=== PATIENT | female | born 1945 | race Caucasian/White ===

== ENCOUNTER → 2016-03-07 | Outpatient (CLI) | payer MEDICARE ==
--- NOTE | 2016-03-07 12:53 | MM ---
Reason for exam: clinical finding. History: Patient is postmenopausal. Indicated problem(s): lump or thickening in the right breast. Physical Findings: Nurse Summary: 2 x 4cm nodule in the right breast at 9 o'clock (nurse ts). MG 3D Diag Mammo W/Cad ANTON Bilateral CC and MLO view(s) were taken. Finding #1: There is a suspicious, high, spiculated, architectural distortion with calcifications in the upper outer quadrant, middle position of the right breast, 6cm from the nipple. Finding #2: There are intermediate concern, suspicious, fine, grouped/clustered calcifications in the upper outer quadrant, middle position of the right breast, 6 cm from the nipple. These results were verbally communicated with the patient and result sheet given to the patient on 03/07/16. ASSESSMENT: Highly suggestive of malignancy, BI-RAD 5 RECOMMENDATION: Ultrasound core biopsy of the right breast. Called Dr. Sheffield with mammographic findings and has scheduled an appointment for the patient for 03/10/16 at 11:[address] Cool. PRELIMINARY REPORT CALLED AND FAXED TO DR. COOL ON 03/07/16 AT 300/TP.
--- NOTE | 2016-03-07 13:01 | USB ---
Reason for exam: clinical finding. History: Patient is postmenopausal. Indicated problem(s): lump or thickening in the right breast. US Breast Limited RT Right breast ultrasound demonstrates a 3.5 x 2.0 x 2.1cm irregular, spiculated, solid, hypoechoic, vascular lesion with calcifications at BB at 9 o'clock. These results were verbally communicated with the patient and result sheet given to the patient on 03/07/16. ASSESSMENT: Highly suggestive of malignancy, BI-RAD 5 RECOMMENDATION: Ultrasound core biopsy of the right breast. Called Dr. Sheffield with mammographic findings and has scheduled an appointment for the patient for 03/10/16 at 11:[address] Cool. PRELIMINARY REPORT CALLED AND FAXED TO DR. COOL ON 03/07/16 AT 300/TP.
== END ==
LOC: RADMAMWWP 10:35
PROVIDERS: ATTEND Family Medicine
DX: N63 Unspecified lump in breast (principal); R92.8 Other abnormal and inconclusive findings on diagnostic imaging of breast
CPT/HCPCS: 76642; G0204; G0279

== ENCOUNTER → 2016-03-14 | Day surgery (SDC) | payer MEDICARE ==
[~2016-03-14] MED LIST: BACITRACIN OINT 1 EACH PACKET TOPICAL ONE; LIDOCAINE 1% INJ 10MG/ML (20 ML MDV) ONE; LIDOCAINE 1%-EPI 1:100,000 20 ML VIAL ONE; SODIUM BICARB 4% 5 ML VIAL (0.48 MEQ/ML) ONE
--- NOTE | 2016-03-14 14:34 | MM ---
EXAMINATION TYPE: MG diagnostic mammo RT wo CAD, MG surgical specimen RT, US biopsy breast VAD RT DATE OF EXAM: 03/14/2016 1:02 PM CLINICAL HISTORY: R92.8 ABNORMAL MAMMOGRAM. Palpable abnormality with prior abnormal mammogram and ultrasound. TECHNIQUE: Ultrasound guided core biopsy of right breast with clip placement and follow-up two-view mammogram as well as specimen mammogram. COMPARISON: Prior mammogram and ultrasound March 07, 2016 FINDINGS: The procedure of ultrasound guided core biopsy was explained to the patient. Benefits, alternatives, and risks were discussed. An informed consent was then obtained. The patient was placed in supine positioning for imaging and for the procedure. Preprocedure imaging redemonstrated irregular heterogeneous hypoechoic mass at 9:00 position in right breast with scattered calcifications identified. The overlying skin was prepped and draped in usual sterile fashion. Lidocaine buffered with bicarbonate was used as anesthetic into the skin. Lidocaine with epinephrine is used as anesthetic into the deeper tissue up to area of concern in the right breast. Under ultrasound guidance, a 13-gauge vacuum assisted biopsy gun device was used to obtain 7 core samples. Following this, a biopsy clip was left in lesion. The patient tolerated the procedure well without any immediate complication. The patient was kept in the radiology department for short stay after the procedure and then discharged home in stable condition. Postprocedure mammogram shows successful clip deployment at area of group of suspicious microcalcifications. Post procedure specimen mammogram shows suspicious calcifications within the specimen. IMPRESSION: Successful, uncomplicated ultrasound guided core biopsy of area of concern in the right breast, full pathology results to follow. High index of suspicion noted at time of procedure. Pathology Results: Malignant BREAST, RIGHT, ULTRASOUND GUIDED CORE BIOPSY: POORLY DIFFERENTIATED INVASIVE CARCINOMA, PENDING SPECIAL STAINS. 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 ADDENDUM REPORT BREAST, RIGHT, ULTRASOUND GUIDED CORE BIOPSY: INVASIVE DUCTAL CARCINOMA AND HIGH GRADE DUCT CARCINOMA IN SITU WITH NECROSIS AND CALCIFICATIONS. Recommendation Surgical consult of the right breast. IVON
== END ==
LOC: RADUSWWP 11:33
PROVIDERS: ATTEND Surgery
DX: C50.811 Malignant neoplasm of overlapping sites of right female breast (principal); N64.1 Fat necrosis of breast; R92.1 Mammographic calcification found on diagnostic imaging of breast; R92.8 Other abnormal and inconclusive findings on diagnostic imaging of breast
CPT/HCPCS: 88305; 88342; 88341; 19083; G0206; A4648; J2001

== ENCOUNTER → 2016-03-27 | Outpatient (CLI) | payer MEDICARE | END | disposition home or self-care (01) | LOC: LABWHC1 16:20 | PROVIDERS: ATTEND Internal Medicine Endocrinology, Diabetes & Metabolism | DX: E03.9 Hypothyroidism, unspecified (principal) | CPT/HCPCS: 36415; 84443 ==

== ENCOUNTER → 2016-03-29 | Outpatient (CLI) | payer MEDICARE ==
--- NOTE | 2016-03-30 10:12 | ECHOF ---
Referral Reason:Z01.818 Pre-Chemotherapy, Breast CA MEASUREMENTS -------- HEIGHT: 165.1 cm WEIGHT: 74.8 kg BP: 191/89 RVIDd: 2.5 cm (< 3.3) IVSd: 0.9 cm (0.6 - 1.1) LVIDd: 4.1 cm (3.9 - 5.3) LVPWd: 0.9 cm (0.6 - 1.1) IVSs: 1.3 cm LVIDs: 2.9 cm LVPWs: 1.4 cm LA Diam: 3.0 cm (2.7 - 3.8) LAESV Index (A-L): 19.37 ml/m Ao Diam: 2.4 cm (2.0 - 3.7) AV Cusp: 1.5 cm (1.5 - 2.6) LA Diam: 2.8 cm (2.7 - 3.8) MV EXCURSION: 13.015 mm (> 18.000) MV EF SLOPE: 82 mm/s (70 - 150) EPSS: 0.6 cm MV E Dillon: 0.75 m/s MV DecT: 288 ms MV A Dillon: 0.60 m/s MV E/A Ratio: 1.25 RAP: 5.00 mmHg RVSP: 36.40 mmHg FINDINGS -------- Sinus rhythm with extra systolic beats. there is turbulent flow just above the left sinus of valsalva. possible abnormal origin of coronary artery. further evaluation with ELINOR and CT angiogram is suggested. This was a technically adequate study. Left ventricular wall thickness is normal. Overall left ventricular systolic function is low-normal with, an EF between 50 - 55 %. The right ventricle is normal in size. Normal LA size by volume 22+/-6 ml/m2. The right atrium is normal in size. Aortic valve is trileaflet and is mildly thickened. Flow crossing from sinus of valsva. Mild mitral annular calcification present. There is trace mitral regurgitation. Mild tricuspid regurgitation present. There is mild pulmonary hypertension. The right ventricular systolic pressure, as measured by Doppler, is 36.40mmHg. Trace/mild (physiologic) pulmonic regurgitation. The aortic root size is normal. Normal inferior vena cava with normal inspiratory collapse consistent with estimated right atrial pressure of 5 mmHg. Echo free space may represent effusion or a pericardial fat pad. CONCLUSIONS -------- 1. Sinus rhythm with extra systolic beats. 2. Mild mitral annular calcification present. 3. There is trace mitral regurgitation. 4. Mild tricuspid regurgitation present. 5. There is mild pulmonary hypertension. 6. The right ventricular systolic pressure, as measured by Doppler, is 36.40mmHg. 7. Trace/mild (physiologic) pulmonic regurgitation. 8. The aortic root size is normal. 9. Echo free space may represent effusion or a pericardial fat pad. 10. there is turbulent flow just above the left sinus of valsalva. possible abnormal origin of coronary artery. further evaluation with ELINOR and CT angiogram is suggested. 11. This was a technically adequate study. 12. Left ventricular wall thickness is normal. 13. Overall left ventricular systolic function is low-normal with, an EF between 50 - 55 %. 14. The right ventricle is normal in size. 15. Normal LA size by volume 22+/-6 ml/m2. 16. Aortic valve is trileaflet and is mildly thickened. 17. Flow crossing from sinus of valsva. SPINNER OPEN END: Danisha Roy RDCS
== END | disposition home or self-care (01) ==
LOC: RADECHMAIN 11:06
PROVIDERS: ATTEND Internal Medicine Hematology & Oncology
DX: Z01.818 Encounter for other preprocedural examination (principal); I07.1 Rheumatic tricuspid insufficiency; I37.1 Nonrheumatic pulmonary valve insufficiency; I27.2 Other secondary pulmonary hypertension
CPT/HCPCS: 93306

== ENCOUNTER → 2016-04-01 | Outpatient (CLI) | payer MEDICARE ==
--- NOTE | 2016-04-02 12:35 | PE ---
EXAMINATION TYPE: PET CT fusion whole body DATE OF EXAM: 04/01/2016 5:01 PM CLINICAL HISTORY: 70 year-old female right breast cancer, initial staging. TECHNIQUE: Following the intravenous administration of 13.0 mCi of F-18 FDG, whole body images are performed from the skull base to the midthigh. Images are reviewed on the computer in the coronal, a xial, and sagittal planes. Reconstructed rotating images are created on independent workstation and reviewed on the computer. A localization and attenuation correction CT is performed in conjunction with the PET scan. Glucose level: 81 mg/dL COMPARISON: Correlation mammographic exams of 03/14/2016 FINDINGS: PET: Patient's known lateral right breast carcinoma shows intense hypermetabolism, maximum SUV 11.2. There is a sentinel lymph node in the low right axilla measuring 9 mm an showing mild FDG uptake, max imal SUV 2.1. This is more uptake than lymph nodes on the contralateral side and the injection was at the left antecubital fossa. There are scattered focal areas of mild to moderate FDG uptake, such as in the right supraclavicular region, paravertebral regions on both sides, greatest on the left at T10 anterior to the transverse p rocess. On CT, this area of increased FDG uptake (maximum SUV 4.0) corresponds to fat. Otherwise, physiologic FDG uptake within the chest, abdomen, and pelvis. ATTENUATION CORRECTION CT: Visualized paranasal sinuses and mastoid air cells appear clear. No cervical lymphadenopathy seen. Heart is mildly enlarged without pericardial effusion. Aorta is normal caliber with conventional bran donaldo anatomy. Mild ectasia lower descending thoracic aorta at 2.6 cm. There is mildly enlarged azul adam to the main right and left pulmonary arteries at 2.8 and 2.6 cm, respectively, suggesting pulmona ry arterial hypertension. No mediastinal lymphadenopathy. Mild diffuse bronchial wall thickening and mild emphysema. Some patchy dependent atelectasis at the lung bases. No pleural effusion. No dilated small bowel, free fluid, or free air. No mesenteric or retroperitoneal lymphadenopathy. Bladder is nondistended. Uterus and ovaries are visualized. No abnormal fluid collection in the pelvi s. Bones: Degenerative changes of both hips and within the mid to lower lumbar spine. No osseous destruc tive process. IMPRESSION: 1. Known lateral right breast carcinoma shows very intense hypermetabolism. No metabolic evidence for multicentric or contralateral disease. 2. Possible early metastasis to the right axillary sentinel lymph node which is not enlarged but show s asymmetrically increased mild FDG uptake. Otherwise, no evidence for metastatic disease. 3. Findings in a pattern suggestive of brown fat along the paravertebral regions, greatest on the lef t at T10. 4. Mild cardiomegaly, mild COPD, and suggestion of pulmonary arterial hypertension.
== END ==
LOC: RADPETMAIN 13:41
PROVIDERS: ATTEND Internal Medicine Hematology & Oncology
DX: C50.419 Malignant neoplasm of upper-outer quadrant of unspecified female breast (principal); J44.9 Chronic obstructive pulmonary disease, unspecified; I51.7 Cardiomegaly
CPT/HCPCS: 78816; A9552

== ENCOUNTER → 2016-04-10 | Outpatient (CLI) | payer MEDICARE ==
--- NOTE | 2016-04-10 11:47 | XR ---
EXAMINATION TYPE: XR chest 2V DATE OF EXAM: 04/10/2016 11:38 AM COMPARISON: None TECHNIQUE: PA and lateral views submitted. HISTORY: Preop breast cancer FINDINGS: The lungs are clear and there is no pneumothorax, pleural effusion, or focal pneumonia. Heart is pr ominent in size. Hypertrophic and degenerative change of the spine. IMPRESSION: 1. No acute process.
== END | disposition home or self-care (01) ==
LOC: RADXRMAIN 11:20
PROVIDERS: ATTEND Surgery
DX: Z01.818 Encounter for other preprocedural examination (principal)
CPT/HCPCS: 71020

== ENCOUNTER 2016-04-11 12:05 | Day surgery (SDC) | payer MEDICARE ==
[2016-04-10 14:36] VITALS: BMI 27.0
[~2016-04-11 12:05] MED LIST changes: -BACITRACIN OINT 1 EACH PACKET TOPICAL ONE; +CLINDAMYCIN 900 MG in DEXTROSE 5% IN WATER 50 ML IVPB ONE; +HYDROmorphone 1 MG/ML 1 ML SYRINGE IVP PRN; +LACTATED RINGERS 1,000 ML IV SCH; +LIDOCAINE 1% 20 ML VIAL (10MG/ML) FOR IV START INTRADERMA PRN; -LIDOCAINE 1% INJ 10MG/ML (20 ML MDV) ONE; -LIDOCAINE 1%-EPI 1:100,000 20 ML VIAL ONE; +MIDAZOLAM 2 MG/2 ML VIAL IV PRN; +ONDANSETRON 4 MG/2 ML VIAL IVP PRN; -SODIUM BICARB 4% 5 ML VIAL (0.48 MEQ/ML) ONE
[2016-04-11 12:28] VITALS: RESP 16; TEMP 97.5
[2016-04-11] MEDS ORDERED: MIDAZOLAM 2 MG/2 ML VIAL ONE (13:56)
[2016-04-11] MEDS ORDERED: PROPOFOL 10 MG/ML 20 ML VIAL IV ONE (13:56)
[2016-04-11] MEDS ORDERED: GLYCOPYRROLATE 0.2 MG/ML 2 ML VIAL ONE (13:56)
[2016-04-11] MEDS ORDERED: KETAMINE 10 MG/ML 20 ML VIAL ONE (13:56)
[2016-04-11] MEDS ORDERED: fentaNYL (PF) 50 MCG/ML 2 ML AMP ONE (13:56)
[2016-04-11] MEDS ORDERED: LIDOCAINE 1% INJ 10MG/ML (20 ML MDV) ONE (13:56)
[2016-04-11] MEDS ORDERED: LIDOCAINE 1% INJ 10MG/ML (20 ML MDV) SQ ONE ×2 (14:18)
[2016-04-11] MEDS ORDERED: HEPARIN SODIUM,PORCINE 100 UNIT/ML 5 ML VIAL IV ONE (14:18)
[2016-04-11] MEDS ORDERED: IOHEXOL 350 MG/ML 100 ML BOTTLE INJ ONE ×2 (14:19)
[2016-04-11] MEDS ORDERED: LACTATED RINGERS 1,000 ML IV ONE (14:49)
--- NOTE | 2016-04-11 15:08 | P.OP ---
Date of Procedure: 04/11/16 Preoperative Diagnosis: right breast cancer Postoperative Diagnosis: Right breast cancer Procedure(s) Performed: Mediport placement in left internal jugular vein Anesthesia: GETA Pathology: none sent Condition: stable Disposition: PACU Indications for Procedure: Neoadjuvant chemotherapy Operative Findings: Patent Internal jugular veins flouro time 71 sec Description of Procedure: The patient was brought to the operating room and placed in supine position with both arms tucked. A footboard was placed. Chlorhexidine was used to prep the neck followed by application of sterile drapes and an Ioban dressing . A timeout was performed to verify correct patient and correct procedure. Patient was confirmed to receive perioperative IV antibiotics and VTE prophylaxis. An ultrasound was performed of the left neck to identify the carotid artery and internal jugular vein. The internal jugular vein was compressible and patent . Photodocumentation was made. Local anesthetic was infiltrated to create a field block. Seldinger technique was used and the internal jugular vein was accessed under direct ultrasound guidance. There was good backflow of dark venous blood. The guidewire was inserted and fluoroscopic images obtained to confirm the tip in SVC. The needle was removed followed by insertion of a dilator peel-away sheath. Local anesthetic was infiltrated along the inferior aspect of the right clavicle. A 2.5 cm skin incision was made and dissection was carried up to the pectoralis major muscle. A pocket was created for the port. The peel-away was cracked and removed with the port in appropriate position as confirmed by fluoroscopy and dye. A Jam was used to tunnel from the expected port site all the way up to the small incision in the neck and the catheter was pulled down into the cavity and then, once cut to size and attached to the port. The connector was clipped shut into position after which fluoroscopy was done positioning. We did use radiopaque dye for this roughly 9 mL. Once that was done subcutaneous tissue in the right pocket area was closed with 2-0 Vicryl. This was done after placing stay sutures with 3-0 Prolene for the port. Skin was closed with 4-0 Monocryl for the port site as well as the initial access site. Dermabond was applied slight pressure dressing in the neck as well as Telfa with Tegaderm for the right pectoral region. Total fluoroscopic time was 71 seconds. Prior to leaving the operating room fluoroscopy showed the catheter tip in the appropriate site patient will get a chest x-ray in recovery.
[2016-04-11] MEDS ORDERED: ONDANSETRON 4 MG/2 ML VIAL IVP ONE (15:30)
--- NOTE | 2016-04-11 15:43 | XR ---
EXAMINATION TYPE: XR chest 1V confirm line plcmt DATE OF EXAM: 04/11/2016 3:39 PM COMPARISON: 04/10/2016 HISTORY: Line placement TECHNIQUE: Single frontal view of the chest is obtained. FINDINGS: There is no focal air space opacity, pleural effusion, or pneumothorax seen. The cardiac silhouette size is within normal limits. Mediport catheter seen with the tip overlying the SVC. Cardiomegaly stable. Underlying COPD suggested . Degenerative change of the spine and arthropathy of the shoulder. IMPRESSION: 1. Mediport seen with the tip overlying the SVC and no evidence of pneumothorax.
[2016-04-11 16:51] VITALS: BP 146/80; PULSE 62
--- NOTE | 2016-04-12 11:50 | FL ---
EXAMINATION TYPE: FL guided central line placemt HISTORY: Fluoroscopy time Impression: 1. Fluoroscopy support provided to the referring physician. Possibility of 1 minute 11 seconds provid ed.
== END 2016-04-11 17:05 | disposition home or self-care (01) ==
LOC: OR 12:05
PROVIDERS: ATTEND Surgery
DX: C50.911 Malignant neoplasm of unspecified site of right female breast (principal); E89.0 Postprocedural hypothyroidism; R11.2 Nausea with vomiting, unspecified; Z79.899 Other long term (current) drug therapy; Z88.1 Allergy status to other antibiotic agents; Z88.5 Allergy status to narcotic agent; Z88.0 Allergy status to penicillin; Z88.2 Allergy status to sulfonamides; Z88.8 Allergy status to other drugs, medicaments and biological substances
CPT/HCPCS: 77001; 36561; C1788 ×2; J2250; J1642; Q9967; J2405; J2001; J3010; J2704

== ENCOUNTER → 2016-05-29 | Outpatient (CLI) | payer MEDICARE ==
--- NOTE | 2016-05-29 13:25 | US ---
EXAMINATION TYPE: US venous doppler duplex LE BI DATE OF EXAM: 05/29/2016 1:01 PM COMPARISON: NONE CLINICAL HISTORY: R22.42, R22.41 swelling in left,right lower limbs. Bilateral leg swelling. Going t hrough chemo. 2nd stage breast ca. SIDE PERFORMED: Bilateral TECHNIQUE: The lower extremity deep venous system is examined utilizing real time linear array sonog brenda with graded compression, doppler sonography and color-flow sonography. VESSELS IMAGED: External Iliac Vein (EIV) Common Femoral Vein Deep Femoral Vein Greater Saphenous Vein * Femoral Vein Popliteal Vein Small Saphenous Vein * Proximal Calf Veins (* superficial vessels) Right Leg: Appears negative for DVT Left Leg: Appears negative for DVT IMPRESSION: 1. No diagnostic evidence of DVT as visualized.
--- NOTE | 2016-05-30 09:48 | ECHOF ---
Referral Reason:R22.42, R22.41 swelling in left,right lower limbs MEASUREMENTS -------- HEIGHT: 165.1 cm WEIGHT: 72.6 kg BP: 133/78 RVIDd: 2.8 cm (< 3.3) IVSd: 0.8 cm (0.6 - 1.1) LVIDd: 4.7 cm (3.9 - 5.3) LVPWd: 0.8 cm (0.6 - 1.1) IVSs: 1.4 cm LVIDs: 3.2 cm LVPWs: 1.1 cm LA Diam: 3.4 cm (2.7 - 3.8) LAESV Index (A-L): 29.97 ml/m Ao Diam: 2.8 cm (2.0 - 3.7) AV Cusp: 2.0 cm (1.5 - 2.6) MV EXCURSION: 14.382 mm (> 18.000) MV EF SLOPE: 91 mm/s (70 - 150) EPSS: 0.3 cm MV E Dillon: 1.20 m/s MV DecT: 196 ms MV A Dillon: 0.70 m/s MV E/A Ratio: 1.71 AV maxP.98 mmHg AV meanP.24 mmHg RAP: 10.00 mmHg RVSP: 35.53 mmHg FINDINGS -------- Sinus rhythm. This was a technically good study. The left ventricular size is normal. Left ventricular wall thickness is normal. Overall left ventricular systolic function is normal with, an EF between 55 - 60 %. The right ventricle is normal in size and function. LA is midly dilated 29-33ml/m2. The right atrium is normal in size. There is mild aortic valve sclerosis. Mild mitral annular calcification present. There is trace to mild mitral regurgitation. Trace tricuspid regurgitation present. There is mild pulmonary hypertension. The right ventricular systolic pressure, as measured by Doppler, is 35.53mmHg. Trace/mild (physiologic) pulmonic regurgitation. The aortic root size is normal. Normal inferior vena cava with less than 50% inspiratory collapse consistent with estimated right atrial pressure of 10 mmHg. The pericardium is normal. CONCLUSIONS -------- 1. Sinus rhythm. 2. Mild mitral annular calcification present. 3. There is trace to mild mitral regurgitation. 4. Trace tricuspid regurgitation present. 5. There is mild pulmonary hypertension. 6. The right ventricular systolic pressure, as measured by Doppler, is 35.53mmHg. 7. Trace/mild (physiologic) pulmonic regurgitation. 8. The aortic root size is normal. 9. Normal inferior vena cava with less than 50% inspiratory collapse consistent with estimated right atrial pressure of 10 mmHg. 10. The pericardium is normal. 11. This was a technically good study. 12. The left ventricular size is normal. 13. Left ventricular wall thickness is normal. 14. Overall left ventricular systolic function is normal with, an EF between 55 - 60 %. 15. The right ventricle is normal in size and function. 16. LA is midly dilated 29-33ml/m2. 17. The right atrium is normal in size. 18. There is mild aortic valve sclerosis. COMPANY MANAGER: Laura Gonzalez RDCS
== END | disposition home or self-care (01) ==
LOC: RADUSMAIN 12:06
PROVIDERS: ATTEND Internal Medicine Hematology & Oncology
DX: Z01.810 Encounter for preprocedural cardiovascular examination (principal); I08.0 Rheumatic disorders of both mitral and aortic valves; I27.2 Other secondary pulmonary hypertension; C50.411 Malignant neoplasm of upper-outer quadrant of right female breast; R63.5 Abnormal weight gain; R22.42 Localized swelling, mass and lump, left lower limb; R22.41 Localized swelling, mass and lump, right lower limb; Z01.818 Encounter for other preprocedural examination
CPT/HCPCS: 93306; 93970

== ENCOUNTER → 2016-09-01 | Outpatient (CLI) | payer MEDICARE ==
--- NOTE | 2016-09-01 15:09 | ECHOF ---
Referral Reason:Z01.818 chemo C50.411 breast ca MEASUREMENTS -------- HEIGHT: 162.6 cm WEIGHT: 65.8 kg BP: IVSd: 0.9 cm (0.6 - 1.1) LVIDd: 3.6 cm (3.9 - 5.3) LVPWd: 0.8 cm (0.6 - 1.1) IVSs: 1.1 cm LVIDs: 1.4 cm LVPWs: 1.4 cm Ao Diam: 3.4 cm (2.0 - 3.7) AV Cusp: 1.9 cm (1.5 - 2.6) LA Diam: 3.4 cm (2.7 - 3.8) MV EXCURSION: 15.965 mm (> 18.000) MV EF SLOPE: 165 mm/s (70 - 150) EPSS: 1.2 cm MV E Dillon: 0.96 m/s MV DecT: 193 ms MV A Dillon: 0.89 m/s MV E/A Ratio: 1.09 AV maxP.61 mmHg AV meanP.46 mmHg AR PHT: 425 ms RAP: 5.00 mmHg RVSP: 33.26 mmHg FINDINGS -------- Sinus rhythm. This was a technically good study. Left ventricular wall thickness is normal. Overall left ventricular systolic function is normal with, an EF between 55 - 60 %. The right ventricle is normal in size and function. The left atrium is normal in size. The right atrium is normal in size. Aortic valve is trileaflet and is mildly thickened. There is trace mitral regurgitation. Trace tricuspid regurgitation present. The right ventricular systolic pressure, as measured by Doppler, is 33.26mmHg. Pulmonic valve appears structurally normal. The aortic root, ascending aorta and aortic arch are normal. The pericardium is normal. CONCLUSIONS -------- 1. Sinus rhythm. 2. Trace tricuspid regurgitation present. 3. The right ventricular systolic pressure, as measured by Doppler, is 33.26mmHg. 4. Pulmonic valve appears structurally normal. 5. The aortic root, ascending aorta and aortic arch are normal. 6. The pericardium is normal. 7. This was a technically good study. 8. Left ventricular wall thickness is normal. 9. Overall left ventricular systolic function is normal with, an EF between 55 - 60 %. 10. The right ventricle is normal in size and function. 11. The left atrium is normal in size. 12. The right atrium is normal in size. 13. Aortic valve is trileaflet and is mildly thickened. 14. There is trace mitral regurgitation. COMPOUNDING AND FINISHING SUPERVISOR: Isela Pino RDCS
== END | disposition home or self-care (01) ==
LOC: RADECHMAIN 12:27
PROVIDERS: ATTEND Internal Medicine Hematology & Oncology
DX: Z01.810 Encounter for preprocedural cardiovascular examination (principal); C50.411 Malignant neoplasm of upper-outer quadrant of right female breast; I08.1 Rheumatic disorders of both mitral and tricuspid valves
CPT/HCPCS: 93306

== ENCOUNTER 2016-09-05 07:40 | Day surgery (SDC) | payer MEDICARE ==
[2016-08-30 11:43] VITALS: BMI 24.1
[~2016-09-05 07:40] MED LIST changes: +DEXAMETHASONE SOD PHOSPHATE 10 MG/ML 1 ML VIAL IV ONE; +HEPARIN SODIUM,PORCINE 5,000 UNIT/ML 1 ML VIAL SQ ONE; -LIDOCAINE 1% 20 ML VIAL (10MG/ML) FOR IV START INTRADERMA PRN; +ONDANSETRON 4 MG/2 ML VIAL IVP ONE; -ONDANSETRON 4 MG/2 ML VIAL IVP PRN; +SCOPOLAMINE 1.5MG/72HR PATCH TRANSDERM ONE
[2016-09-05] MEDS ORDERED: ALPRAZolam 0.25 MG TAB PO STA (08:03)
[2016-09-05] MEDS ORDERED: LIDOCAINE 1% 20 ML VIAL (10MG/ML) FOR IV START INTRADERMA ONE (08:18)
[2016-09-05] MEDS ORDERED: LIDOCAINE 1% INJ 10MG/ML (20 ML MDV) SQ ONE (10:01)
--- NOTE | 2016-09-05 10:38 | NM ---
EXAMINATION TYPE: NM sentinel node injection DATE OF EXAM: 09/05/2016 COMPARISON: NONE HISTORY: Breast cancer TECHNIQUE AND FINDINGS: The procedure of sentinel lymph node injection was explained to the patient. The benefits, alternatives, and risks were discussed. An informed consent was then obtained. Overlying skin is cleaned with sterile alcohol. Lidocaine buffered with bicarbonate was used as anes thetic into the skin and subcutaneous tissue surrounding the nipple. Following this, 549 uCi Tc 99m Filtered Sulfur Colloid was injected into 4 equivalent doses at 12, 3, 6, and 9:00 position surroundi ng the right nipple intradermally. The injection sites were massaged by nuclear medical technologist for 10 minutes after injection. T he patient tolerated the procedure well without any immediate complication. The patient was kept in the radiology department for short stay after the procedure and then taken to surgery for surgical pr ocedure. IMPRESSION: Right breast radiotracer injection for sentinel node localization as above.
[2016-09-05] MEDS ORDERED: HEPARIN SODIUM,PORCINE 5,000 UNIT/ML 1 ML VIAL SQ ONE ×2 (11:21→12:32)
[2016-09-05] MEDS ORDERED: GLYCOPYRROLATE 0.2 MG/ML 2 ML VIAL ONE (13:09)
[2016-09-05] MEDS ORDERED: NEOSTIGMINE 1 MG/ML 10 ML VIAL ONE (13:09)
[2016-09-05] MEDS ORDERED: ROCURONIUM BROMIDE 10 MG/ML 10 ML VIAL IV ONE (13:09)
[2016-09-05] MEDS ORDERED: LIDOCAINE 1% INJ 10MG/ML (20 ML MDV) ONE (13:09)
[2016-09-05] MEDS ORDERED: SUCCINYLCHOLINE CHLORIDE 100 MG/5 ML SYR IV ONE (13:09)
[2016-09-05] MEDS ORDERED: MIDAZOLAM 2 MG/2 ML VIAL ONE (13:09)
[2016-09-05] MEDS ORDERED: fentaNYL (PF) 50 MCG/ML 2 ML AMP ONE (13:09)
[2016-09-05] MEDS ORDERED: ONDANSETRON 4 MG/2 ML VIAL ONE (13:09)
[2016-09-05] MEDS ORDERED: PROPOFOL 10 MG/ML 20 ML VIAL IV ONE (13:09)
[2016-09-05] MEDS ORDERED: METHYLENE BLUE 10 MG/ML 1 ML VIAL INJ ONE (13:28)
[2016-09-05] MEDS ORDERED: LACTATED RINGERS 1,000 ML IV ONE (15:20)
[2016-09-05] MEDS ORDERED: NALOXONE 0.4 MG/ML 1 ML VIAL IV PRN (15:32)
[2016-09-05] MEDS ORDERED: HYDROcodone/APAP 5-325MG 1 EACH TAB PO PRN (15:32)
[2016-09-05] MEDS ORDERED: ONDANSETRON 4 MG/2 ML VIAL IVP PRN (15:32)
--- NOTE | 2016-09-05 15:32 | P.OP ---
Date of Procedure: 09/05/16 Preoperative Diagnosis: right breast cancer Postoperative Diagnosis: same Procedure(s) Performed: right sentinal node mapping, sentinal node biopsy, axillary disection, right breast lumpectomy Implants: biozorb Anesthesia: GETA Surgeon: Marlee Cool Estimated Blood Loss (ml): 30 IV fluids (ml): 600 Pathology: other (sentinal noeds, axillary contents, right breast lumectomy) Condition: stable Disposition: PACU Indications for Procedure: Right breast cancer Operative Findings: Right breast cancer, sentinel node positive for cancer Description of Procedure: Patient was taken to the operating room and following induction of general anesthesia the right breast and the axilla were prepped and draped in a sterile fashion. This was done after 6 mL of half-strength methylene blue were injected in the periareolar area of the breast which was massaged to facilitate identification of the sentinal node. The sentinel node was approached initially. An incision was made in the axilla and a radioactive blue lymph node was identified. The 10 second count on the lymph node was 6529. This was sent for frozen section evaluation. Two additional sentinel nodes were identified and removed. The lymph nodes were radioactive and blue. The 10 second background count following this was 7. Pathology called and said that the sentinel node was positive for cancer. Therefore the axillary dissection was performed. The pectoralis muscle was followed superiorly to the axillary vein. Tissues were swept inferiorly being careful to identify and preserve the thoracodorsal and long thoracic nerves. The specimen was removed. This was done after assured that hemostasis was attained. A CARMEN drain was placed. Deep tissues were closed with 3-0 Vicryl suture. The skin was closed with a 4-0 Monocryl. The lumpectomy was performed. An incision was made and carried down to the hook of the localizing needle. Surrounding tissue was excised. After the tissue had been excised it was painted to orient the specimen. Radiograph of the specimen revealed that the area of concern had been removed. It should be noted that the dissection was carried down to the muscle of the chest wall. The wound was then well irrigated. A biozorb sizing device was utilized to determine the size Biozorb to be placed. The size chosen was a 3 x 4 BioSorb. Therefore BioSorb was placed after the tissue had been adequately mobilized to cover this appropriately. The tissue mobilization was approximately 3 x 4 cm. The deep tissues were closed with 3-0 Vicryl suture. This was followed by closure with a 4-0 Monocryl in a nylon skin suture. The patient tolerated the procedure in stable condition. All instrument and sponge counts were correct at the end of the case.
[2016-09-05] MEDS ORDERED: DEXTROSE 5%-0.45% NACL 1,000 ML IV SCH (15:45)
[2016-09-05] MEDS: HEPARIN SODIUM,PORCINE 5,000 UNIT/ML 1 ML VIAL SQ SCH ×2 (19:30→23:54)
[2016-09-05] MEDS: HYDROmorphone 1 MG/ML 1 ML SYRINGE IV PRN ×2 (19:32→22:17)
[2016-09-05] MEDS: FAMOTIDINE 20 MG TAB PO SCH (20:45)
[2016-09-06] MEDS: HYDROmorphone 1 MG/ML 1 ML SYRINGE IV PRN ×2 (02:36→05:44)
--- NOTE | 2016-09-06 08:29 | P.DS ---
Providers Expected date of discharge: 09/06/16 Attending physician: Marlee Cool Consults: 09/05/16 15:34 Consult Physician Routine Consulting Provider: Ranjit Dowell Consult Reason/Comments: medical managment Do you want consulting provider notified?: Yes Primary care physician: Latosha Sheffield Hospital Course: 71-year-old female admitted on an elective admission to undergo right breast lumpectomy for right breast cancer. Patient underwent on September 05 a right sentinal node mapping, sentinal node biopsy, axillary dissection, right breast lumpectomy per Dr. Kim. Anoop-Young drain placed. Operative findings showed right breast cancer, sentinal node positive for cancer. Postop on September 06 patient was evaluated by Dr. Ag at the bedside and was felt to be appropriate to proceed with a discharge to home. The surgical site dressing removed dry slight surgical tenderness at the site afebrile scant amount of drainage from the Anoop-Young drain. Patient was felt to be medically stable and appropriate proceed with a discharge to home Impression discharge diagnosis (Right breast cancer sentinal node positive for cancer Postop 09/05/2016 right sentinal node mapping, sentinal node biopsy, axillary dissection, right breast lumpectomy with implants The above impression and plan of care have been discussed and directed by signing physician. Danielle Dallas nurse practitioner acting as scribe for signing physician. Plan - Discharge Summary New Discharge Prescriptions: New HYDROcodone/APAP 5-325MG [[place] 5-325] 1 each PO Q4HR PRN #15 tab PRN Reason: Moderate Pain Continue Levothyroxine Sodium [Tirosint] 100 mcg PO DAILY Ondansetron HCl [Zofran] 8 mg PO Q8HR PRN PRN Reason: Nausea Gabapentin [Neurontin] 100 mg PO PC-SUPPER Gabapentin [Neurontin] 200 mg PO QAM Herceptin (Unknown Dose) 1 dose IV Q21D Diarrhea Med 1 tab PO Q6HR PRN PRN Reason: Diarrhea Discharge Medication List Levothyroxine Sodium [Tirosint] 100 mcg PO DAILY 04/10/16 [History] Ondansetron HCl [Zofran] 8 mg PO Q8HR PRN 04/10/16 [History] Gabapentin [Neurontin] 100 mg PO PC-SUPPER 08/30/16 [History] Gabapentin [Neurontin] 200 mg PO QAM 08/30/16 [History] Herceptin (Unknown Dose) 1 dose IV Q21D 08/30/16 [History] Diarrhea Med 1 tab PO Q6HR PRN 09/05/16 [History] HYDROcodone/APAP 5-325MG [[place] 5-325] 1 each PO Q4HR PRN #15 tab 09/06/16 [Rx] Follow up Appointment(s)/Referral(s): Marlee Cool MD [STAFF PHYSICIAN] - 1 Week Activity/Diet/Wound Care/Special Instructions: Anoop-Young drain instructions No lifting over 10 pounds until seen in the follow-up visit Discharge Disposition: HOME SELF-CARE
[2016-09-06] MEDS: HEPARIN SODIUM,PORCINE 5,000 UNIT/ML 1 ML VIAL SQ SCH (09:11)
[2016-09-06] MEDS: FAMOTIDINE 20 MG TAB PO SCH (09:28)
[2016-09-06 09:43] VITALS: BP 114/74; PULSE 74; RESP 16; TEMP 96.8
--- NOTE | 2016-09-06 13:35 | CONS ---
DATE OF CONSULTATION: 09/05/2016 PRESENTING COMPLAINT: Right breast lumpectomy. HISTORY OF PRESENTING COMPLAINT: This is a patient I saw yesterday evening on . The patient follows with Dr. Sheffield. The patient has a diagnosis of right breast cancer and is getting chemotherapy by Dr. Nelson. The patient underwent a right breast lumpectomy with lymph node removal. Post surgery some pain is present. Chronic stable medical conditions include hyperlipidemia, does not take any lipid-lowering medications because of side effects; hypothyroid, varicose veins and peripheral neuropathy secondary to chemotherapy. Chemotherapy is also giving the patient diarrhea which could be anywhere from 2-4 times a day. REVIEW OF SYSTEMS: CONSTITUTIONAL: None. HEENT: Loss of scalp hair. RESPIRATORY: None. CARDIOVASCULAR: None. GASTROINTESTINAL: 2-4 bowel movements a day. GENITOURINARY: None. MUSCULOSKELETAL: None. DERMATOLOGIC: None. HEMATOLOGIC: None. LYMPHATICS: None. PSYCHIATRY: None. NEUROLOGIC: Numbness and tingling in the hands, more so in the feet. PAST MEDICAL HISTORY: Right breast cancer, hyperlipidemia, hypertension, varicose veins, peripheral neuropathy, alopecia. PAST SURGICAL HISTORY: Tonsillectomy, right thyroidectomy, right breast biopsy , ( ) surgery, left Mediport. SOCIAL HISTORY: . Does not smoke or drink alcohol. FAMILY HISTORY: Reviewed, not contributory to presentation. HOME MEDICATIONS: 1. Neurontin 200 mg a day. 2. Tirosint 100 mcg p.o. daily. 3. Neurontin 100 mg with supper. ALLERGIES: STEROID, BACTRIM, STATINS, LEVOTHYROXINE, ADHESIVE TAPE, PENICILLIN. On examination, temperature 97, pulse 92, respirations 16, blood pressure 129/75 , pulse ox 99% on room air. GENERAL APPEARANCE: Average build, sitting up, not in distress. EYES: Pupils equal. Conjunctivae normal. HEENT: Decreased scalp hair. External appearance of ears, nose normal. Oral cavity normal. NECK: JVP not raised. No mass palpable. RESPIRATORY EFFORT: Lungs are clear. CARDIOVASCULAR: First and second normal. No edema. ABDOMEN: Soft, nontender. Liver and spleen not palpable. LYMPHATICS: No lymph node in neck and axillae. PSYCHIATRIC: Alert and oriented x3. Mood and affect normal. NEUROLOGIC: Some decreased sensation in the feet. Chest wall dressing over the right breast. INVESTIGATIONS: No blood work. ASSESSMENT: 1. Right breast lumpectomy with lymph node removal for breast cancer. 2. Right breast cancer undergoing chemotherapy by Dr. Nelson. 3. Hyperlipidemia. Does not take any statins. 4. Hypothyroid. 5. Lower extremity varicose veins. 6. Peripheral neuropathy secondary to chemotherapy. 7. 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 PLAN: Home medications resumed. Patient encouraged to ambulate. Continue on DVD prophylaxis. Care was discussed with the patient. She will follow up with the family doctor and Dr. Nelson, upon discharge. Thank you Dr. Krystin Cool. [email or web address]
== END 2016-09-06 09:37 | disposition home or self-care (01) ==
LOC: OR 07:40 → 6PED 15:26 → OR 09-06 09:37
PROVIDERS: ATTEND Surgery
DX: C50.911 Malignant neoplasm of unspecified site of right female breast (principal); C77.3 Secondary and unspecified malignant neoplasm of axilla and upper limb lymph nodes; N60.11 Diffuse cystic mastopathy of right breast; Z92.21 Personal history of antineoplastic chemotherapy; G62.9 Polyneuropathy, unspecified; R60.0 Localized edema; I83.90 Asymptomatic varicose veins of unspecified lower extremity; L65.8 Other specified nonscarring hair loss; E06.3 Autoimmune thyroiditis; E04.9 Nontoxic goiter, unspecified; E78.5 Hyperlipidemia, unspecified; E03.9 Hypothyroidism, unspecified; Z79.899 Other long term (current) drug therapy; Z88.1 Allergy status to other antibiotic agents; Z88.0 Allergy status to penicillin; Z88.2 Allergy status to sulfonamides; Z88.8 Allergy status to other drugs, medicaments and biological substances; Z91.048 Other nonmedicinal substance allergy status
CPT/HCPCS: 88342; 88331; 88307; 88341; 76098; 19281; 38792; 19302; 19499; C1713; A9541; J2250; J1644 ×2; J1100; J2710; J2405; J2001; Q9968; J3010; J1170 ×2; J0330; J2704

== ENCOUNTER → 2016-10-02 | Outpatient (CLI) | payer MEDICARE | END | disposition home or self-care (01) | LOC: LABWHC1 10:43 | PROVIDERS: ATTEND Internal Medicine Endocrinology, Diabetes & Metabolism | DX: E03.8 Other specified hypothyroidism (principal) | CPT/HCPCS: 36415; 84443 ==

== ENCOUNTER → 2016-12-29 | Outpatient (CLI) | payer MEDICARE ==
--- NOTE | 2016-12-30 09:16 | ECHOF ---
Referral Reason:Z01.818 Chemo, C50.411 Breast CA MEASUREMENTS -------- HEIGHT: 165.1 cm WEIGHT: 68.9 kg BP: 159/74 RVIDd: 1.9 cm (< 3.3) IVSd: 0.9 cm (0.6 - 1.1) LVIDd: 4.3 cm (3.9 - 5.3) LVPWd: 1.1 cm (0.6 - 1.1) IVSs: 1.1 cm LVIDs: 2.9 cm LVPWs: 1.3 cm LAESV Index (A-L): 40.83 ml/m Ao Diam: 2.8 cm (2.0 - 3.7) AV Cusp: 1.8 cm (1.5 - 2.6) LA Diam: 2.9 cm (2.7 - 3.8) MV EXCURSION: 15.184 mm (> 18.000) MV EF SLOPE: 87 mm/s (70 - 150) EPSS: 0.3 cm MV E Dillon: 1.01 m/s MV DecT: 338 ms MV A Dillon: 0.76 m/s MV E/A Ratio: 1.33 RAP: 5.00 mmHg RVSP: 29.16 mmHg FINDINGS -------- Sinus rhythm. This was a technically adequate study. The left ventricular size is normal. Left ventricular wall thickness is normal. Overall left vent ricular systolic function is normal with, an EF between 60 - 65 %. The right ventricle is normal in size and function. LA is severely dilated >40 ml/m2 RA appears enlarged. Aortic valve is trileaflet and is mildly thickened. There is no evidence of aortic regurgitation. There is no evidence of aortic stenosis. Mild mitral annular calcification present. There is trace to mild mitral regurgitation. No regurgitation noted Right ventricular systolic pressure is normal at < 35 mmHg. There is no ev idence of pulmonary hypertension. The pulmonic valve was not well visualized. The aortic root size is normal. Normal inferior vena cava with normal inspiratory collapse consistent with estimated right atrial pre ssure of 5 mmHg. The pericardium is normal. There is no pericardial effusion. CONCLUSIONS -------- 1. Sinus rhythm. 2. This was a technically adequate study. 3. The left ventricular size is normal. 4. Left ventricular wall thickness is normal. 5. Overall left ventricular systolic function is normal with, an EF between 60 - 65 %. 6. LA is severely dilated >40 ml/m2 7. RA appears enlarged. 8. Aortic valve is trileaflet and is mildly thickened. 9. Mild mitral annular calcification present. 10. There is trace to mild mitral regurgitation. 11. No regurgitation noted 12. Right ventricular systolic pressure is normal at < 35 mmHg. 13. There is no evidence of pulmonary hypertension. 14. The pulmonic valve was not well visualized. 15. The aortic root size is normal. 16. There is no pericardial effusion. TRIAL JUSTICE: Laura Gonzalez RDCS
== END | disposition home or self-care (01) ==
LOC: RADECHMAIN 14:26
PROVIDERS: ATTEND Internal Medicine Hematology & Oncology
DX: C50.411 Malignant neoplasm of upper-outer quadrant of right female breast (principal); I08.0 Rheumatic disorders of both mitral and aortic valves
CPT/HCPCS: 93306

== ENCOUNTER → 2017-03-08 | Outpatient (CLI) | payer MEDICARE ==
--- NOTE | 2017-03-09 08:29 | MM ---
Reason for exam: additional evaluation requested from prior study. Last mammogram was performed 1 year ago. History: Patient is postmenopausal and has history of breast cancer at age 71. Malignant MG pre op needle loc RT of the right breast, September 05, 2016. Malignant US biopsy breast VAD RT of the right breast, March 14, 2016. Physical Findings: Nurse did not find any significant physical abnormalities on exam. MG 3D Diag Mammo W/Cad LT CC and MLO view(s) were taken of the left breast. Prior study comparison: March 14, 2016, right breast MG diagnostic mammo RT wo CAD. March 07, 2016, bilateral MG 3d diag mammo w/cad [place]. The breast tissue is heterogeneously dense. This may lower the sensitivity of mammography. No suspicious abnormality. No significant new findings when compared with previous films. These results were verbally communicated with the patient and result sheet given to the patient on 03/08/17. ASSESSMENT: Negative, BI-RAD 1 RECOMMENDATION: Follow-up diagnostic mammogram of both breasts in 1 year.
== END | disposition home or self-care (01) ==
LOC: RADMAMWWP 13:19
PROVIDERS: ATTEND Surgery
DX: R92.8 Other abnormal and inconclusive findings on diagnostic imaging of breast (principal)
CPT/HCPCS: 77065; G0279

== ENCOUNTER → 2017-03-15 | Outpatient (CLI) | payer MEDICARE | END | disposition home or self-care (01) | LOC: LABWHC1 10:59 | PROVIDERS: ATTEND Internal Medicine Endocrinology, Diabetes & Metabolism | DX: E03.8 Other specified hypothyroidism (principal) | CPT/HCPCS: 36415; 84443 ==

== ENCOUNTER → 2017-03-16 | Outpatient (CLI) | payer MEDICARE ==
--- NOTE | 2017-03-16 12:19 | XR ---
EXAMINATION TYPE: XR shoulder limited LT DATE OF EXAM: 03/16/2017 COMPARISON: NONE HISTORY: Pain TECHNIQUE: Three views are submitted. FINDINGS: The osseous structures are intact. There is no acute fracture or dislocation. Mediport catheter note d. There is arthropathy of the AC joint. No definite destructive changes. IMPRESSION: 1. AC joint arthropathy. No destructive lesion identified.
== END | disposition home or self-care (01) ==
LOC: RADXRMAIN 11:52
PROVIDERS: ATTEND Internal Medicine Hematology & Oncology
DX: C50.411 Malignant neoplasm of upper-outer quadrant of right female breast (principal); M12.9 Arthropathy, unspecified; R19.7 Diarrhea, unspecified; Z17.1 Estrogen receptor negative status [ER-]

== ENCOUNTER → 2017-03-23 | Outpatient (CLI) | payer MEDICARE ==
[2017-03-23 12:43] LABS: HCT 38.5 % (34.0-46.0); HGB 12.6 gm/dL (11.4-16.0); MCH 31.3 pg (25.0-35.0); MCHC 32.8 g/dL (31.0-37.0); MCV 95.6 fL (80.0-100.0); Mean Platelet Volume 6.7; Platelet Count 276 k/uL (150-450); RBC 4.03 m/uL (3.80-5.40); RDW 12.7 % (11.5-15.5); WBC 7.2 k/uL (3.8-10.6)
[2017-03-23 13:07] LABS: ALT 27 U/L (9-52); AST 26 U/L (14-36); Albumin 4.3 g/dL (3.5-5.0); Alkaline Phosphatase 103 U/L (38-126); Anion Gap 9 mmol/L; Blood Urea Nitrogen 21 mg/dL (7-17); Calcium 9.6 mg/dL (8.4-10.2); Carbon Dioxide 30 mmol/L (22-30); Chloride 103 mmol/L (98-107); Glucose 89 mg/dL (74-99); Potassium 4.3 mmol/L (3.5-5.1); Sodium 142 mmol/L (137-145); Total Bilirubin 0.6 mg/dL (0.2-1.3); Total Protein 7.3 g/dL (6.3-8.2)
[2017-03-23 14:11] LABS: Erythrocyte Sedimentation Rate 9 mm/hr (0-20)
[2017-03-23 19:23] LABS: Vitamin D 25 Hydroxy 11.7 ng/mL (30.0-100.0)
== END | disposition home or self-care (01) ==
LOC: LABWHC1 12:05
PROVIDERS: ATTEND Family Medicine
DX: D64.9 Anemia, unspecified (principal); M79.609 Pain in unspecified limb; R20.0 Anesthesia of skin; R53.83 Other fatigue; R19.7 Diarrhea, unspecified
CPT/HCPCS: 36415; 80053; 82306; 82607; 83540; 85027; 85652

== ENCOUNTER 2017-03-28 02:33 | Emergency (ER) | payer MEDICARE ==
[2017-03-28 02:46] VITALS: RESP 18
[2017-03-28 03:17] LABS: Appearance,Urine Clear (Clear); Bilirubin,Urine Negative (Negative); Blood,Urine Negative (Negative); Color,Urine Light Yellow; Glucose,Urine (UA) Negative (Negative); Ketones,Urine Negative (Negative); Leukocyte Esterase,Urine Trace (Negative); Nitrite,Urine Negative (Negative); PH, Urine 5.5 (5.0-8.0); Protein,Urine Negative (Negative); RBC,Urine 1 /hpf (0-5); Squamous Epithelial Cell,Urine <1 /hpf (0-4); Urobilinogen,Urine <2.0 mg/dL (<2.0); WBC,Urine 1 /hpf (0-5)
--- NOTE | 2017-03-28 03:28 | ED ---
General Adult HPI - General Chief complaint: Recheck/Abnormal Lab/Rx Stated complaint: hands and legs swelling Time Seen by Provider: 03/28/17 02:49 Source: patient, family, RN notes reviewed Mode of arrival: ambulatory Limitations: no limitations - History of Present Illness Initial comments: 71-year-old female presents emergency Department chief complaint swelling. 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 Patient states she has breast cancer. Patient states her oncologist is Dr. Nelson. She's had chemo and radiation and surgery. Patient states that she's been getting worse and swelling of her legs , and region. She states she needs her rings cut off. Denies any chest pain or shortness breath. She states she has echocardiograms every 3 months because of the treatments which have all been within normal limits. She states she primarily is concerned about her hand swelling and not be able get her rings off. Patient states that she does have swelling primarily over lower extremities and did see her primary care physician a few days ago in which she gave her Lasix or 5 days though it did not improve her symptoms. Patient believe this is related to her medications. - Related Data Home Medications Medication Instructions Recorded Confirmed Levothyroxine Sodium [Tirosint] 100 mcg PO DAILY 04/10/16 03/28/17 Allergies Allergy/AdvReac Type Severity Reaction Status Date / Time Penicillins Allergy Severe Anaphylaxis Verified 03/28/17 02:46 adhesive tape Allergy Rash/Hives Verified 03/28/17 02:46 levothyroxine sodium Allergy Diarrhea Verified 03/28/17 02:46 Tccinvv-Qxs-Igl Reductase Allergy muscle Verified 03/28/17 02:46 Inhibitor aches sulfamethoxazole Allergy Rash/Hives Verified 03/28/17 02:46 [From Bactrim] trimethoprim [From Bactrim] Allergy Rash/Hives Verified 03/28/17 02:46 steroid Allergy Severe swelling Uncoded 03/28/17 02:46 of hands Review of Systems ROS Statement: Those systems with pertinent positive or pertinent negative responses have been documented in the HPI. ROS Other: All systems not noted in ROS Statement are negative. Past Medical History Past Medical History: Cancer, Hyperlipidemia, Thyroid Disorder Additional Past Medical History / Comment(s): HX OF THYROID NODULES., RIGHT BREAST CANCER- RECEIVING CHEMOTHERAPY SINCE APRIL 2016., VARICOSE VEINS., OCCASIONAL RINGING LEFT EAR.,STATES SWELLING IN LEGS AND ANKLES, SINUS DRAINAGE , DIARRRHEA & NAUSEA FROM CHEMO., HAS NUMBNESS IN TINGLING IN HANDS AND FEET- SOMETIMES DIFFICULTY WALKING . History of Any Multi-Drug Resistant Organisms: None Reported Past Surgical History: Tonsillectomy Additional Past Surgical History / Comment(s): rt thyroidectomy, rt breast biopsy, nasal surgery(Fx), LEFT Mediport. Past Anesthesia/Blood Transfusion Reactions: Motion Sickness, Postoperative Nausea & Vomiting (PONV) Past Psychological History: Anxiety Smoking Status: Never smoker Past Alcohol Use History: None Reported Past Drug Use History: None Reported - Past Family History Mother Family Medical History: No Reported History General Exam Limitations: no limitations General appearance: alert, in no apparent distress Head exam: Present: atraumatic, normocephalic, normal inspection Eye exam: Present: normal appearance, PERRL, EOMI. Absent: scleral icterus, conjunctival injection, periorbital swelling Respiratory exam: Present: normal lung sounds bilaterally. Absent: respiratory distress, wheezes, rales, rhonchi, stridor Cardiovascular Exam: Present: regular rate, normal rhythm, normal heart sounds. Absent: systolic murmur, diastolic murmur, rubs, gallop, clicks GI/Abdominal exam: Present: soft, normal bowel sounds. Absent: distended, tenderness, guarding, rebound, rigid Extremities exam: Present: other (rings noted on the left hand which were cut off. Extremities are neurovascular intact there is moderate amount of edema noted lower extremities) Skin exam: Present: warm, dry, intact, normal color. Absent: rash Course Vital Signs 03/28/17 03/28/17 02:41 04:19 Temperature 97.9 F 98.0 F Pulse Rate 73 72 Respiratory 18 18 Rate Blood Pressure 171/78 165/73 O2 Sat by Pulse 98 99 Oximetry - Reevaluation(s) Reevaluation #1: 03/28/17 03:30 Patient's rings were cut off by Josesito BERGER, no complications patient tolerated well EKG Findings - EKG Comments: EKG Findings:: EKG performed at 3:09 normal sinus rhythm with a rate of 66 FL 174 QRS 94 QT/QTC 410/429 Medical Decision Making - Medical Decision Making 71-year-old female presented emergency department for pain and leg swelling. She was presented for ring removal. These were removed and is from no comp patients. Patient had basic lab work EKG and chest x-ray which are unremarkable. Patient's been having some ongoing swelling which is worsened. She has seen her primary care physician she is advised follow-up with her oncologist. This may be medication induced. - Lab Data Result diagrams: 03/28/17 03:11 03/28/17 03:11 Lab Results 03/28/17 03/28/17 03/28/17 Range/Units 02:53 03:11 03:11 WBC 7.7 (3.8-10.6) k/uL RBC 4.10 (3.80-5.40) m/uL Hgb 12.7 (11.4-16.0) gm/dL Hct 38.4 (34.0-46.0) % MCV 93.6 (80.0-100.0) fL MCH 31.0 (25.0-35.0) pg MCHC 33.1 (31.0-37.0) g/dL RDW 12.8 (11.5-15.5) % Plt Count 241 (150-450) k/uL Neutrophils % 45 % Lymphocytes % 42 % Monocytes % 7 % Eosinophils % 2 % Basophils % 1 % Neutrophils # 3.5 (1.3-7.7) k/uL Lymphocytes # 3.2 (1.0-4.8) k/uL Monocytes # 0.5 (0-1.0) k/uL Eosinophils # 0.2 (0-0.7) k/uL Basophils # 0.1 (0-0.2) k/uL PT (9.0-12.0) sec INR (<1.2) APTT (22.0-30.0) sec Sodium 140 (137-145) mmol/L Potassium 4.1 (3.5-5.1) mmol/L Chloride 103 (98-107) mmol/L Carbon Dioxide 26 (22-30) mmol/L Anion Gap 11 mmol/L BUN 25 H (7-17) mg/dL Creatinine 0.90 (0.52-1.04) mg/dL Est GFR (MDRD) Af Amer >60 (>60 ml/min/1.73 sqM) Est GFR (MDRD) Non-Af >60 (>60 ml/min/1.73 sqM) Glucose 109 H (74-99) mg/dL Calcium 9.6 (8.4-10.2) mg/dL Magnesium 2.1 (1.6-2.3) mg/dL Total Bilirubin 0.5 (0.2-1.3) mg/dL AST 35 (14-36) U/L ALT 31 (9-52) U/L Alkaline Phosphatase 99 (38-126) U/L Troponin I (0.000-0.034) ng/mL NT-Pro-B Natriuret Pep pg/mL Total Protein 7.2 (6.3-8.2) g/dL Albumin 4.4 (3.5-5.0) g/dL Urine Color Light Yellow Urine Appearance Clear (Clear) Urine pH 5.5 (5.0-8.0) Ur Specific Hood 1.010 (1.001-1.035) Urine Protein Negative (Negative) Urine Glucose (UA) Negative (Negative) Urine Ketones Negative (Negative) Urine Blood Negative (Negative) Urine Nitrite Negative (Negative) Urine Bilirubin Negative (Negative) Urine Urobilinogen <2.0 (<2.0) mg/dL Ur Leukocyte Esterase Trace H (Negative) Urine RBC 1 (0-5) /hpf Urine WBC 1 (0-5) /hpf Ur Squamous Epith Cells <1 (0-4) /hpf 03/28/17 03/28/17 03/28/17 Range/Units 03:11 03:11 03:11 WBC (3.8-10.6) k/uL RBC (3.80-5.40) m/uL Hgb (11.4-16.0) gm/dL Hct (34.0-46.0) % MCV (80.0-100.0) fL MCH (25.0-35.0) pg MCHC (31.0-37.0) g/dL RDW (11.5-15.5) % Plt Count (150-450) k/uL Neutrophils % % Lymphocytes % % Monocytes % % Eosinophils % % Basophils % % Neutrophils # (1.3-7.7) k/uL Lymphocytes # (1.0-4.8) k/uL Monocytes # (0-1.0) k/uL Eosinophils # (0-0.7) k/uL Basophils # (0-0.2) k/uL PT 10.3 (9.0-12.0) sec INR 1.0 (<1.2) APTT 24.5 (22.0-30.0) sec Sodium (137-145) mmol/L Potassium (3.5-5.1) mmol/L Chloride (98-107) mmol/L Carbon Dioxide (22-30) mmol/L Anion Gap mmol/L BUN (7-17) mg/dL Creatinine (0.52-1.04) mg/dL Est GFR (MDRD) Af Amer (>60 ml/min/1.73 sqM) Est GFR (MDRD) Non-Af (>60 ml/min/1.73 sqM) Glucose (74-99) mg/dL Calcium (8.4-10.2) mg/dL Magnesium (1.6-2.3) mg/dL Total Bilirubin (0.2-1.3) mg/dL AST (14-36) U/L ALT (9-52) U/L Alkaline Phosphatase (38-126) U/L Troponin I <0.012 (0.000-0.034) ng/mL NT-Pro-B Natriuret Pep 37 pg/mL Total Protein (6.3-8.2) g/dL Albumin (3.5-5.0) g/dL Urine Color Urine Appearance (Clear) Urine pH (5.0-8.0) Ur Specific Hood (1.001-1.035) Urine Protein (Negative) Urine Glucose (UA) (Negative) Urine Ketones (Negative) Urine Blood (Negative) Urine Nitrite (Negative) Urine Bilirubin (Negative) Urine Urobilinogen (<2.0) mg/dL Ur Leukocyte Esterase (Negative) Urine RBC (0-5) /hpf Urine WBC (0-5) /hpf Ur Squamous Epith Cells (0-4) /hpf Disposition Clinical Impression: Leg edema, Constrictive jewelry of finger Disposition: HOME SELF-CARE Condition: Stable Instructions: Leg Edema (ED) Additional Instructions: Please return to the Emergency Department if symptoms worsen or any other concerns. Referrals: Latosha Sheffield DO [Primary Care Provider] - 1-2 days Time of Disposition: 09:03
[2017-03-28 03:36] LABS: Basophils # (A) 0.1 k/uL (0-0.2); Basophils % (A) 1 %; Eosinophils # (A) 0.2 k/uL (0-0.7); Eosinophils % (A) 2 %; HCT 38.4 % (34.0-46.0); HGB 12.7 gm/dL (11.4-16.0); Lymphocytes # (A) 3.2 k/uL (1.0-4.8); Lymphocytes % (A) 42 %; MCHC 33.1 g/dL (31.0-37.0); MCV 93.6 fL (80.0-100.0); Mean Platelet Volume 6.6; Monocytes # (A) 0.5 k/uL (0-1.0); Monocytes % (A) 7 %; Neutrophils # (A) 3.5 k/uL (1.3-7.7); Neutrophils % (A) 45 %; Platelet Count 241 k/uL (150-450); RDW 12.8 % (11.5-15.5); WBC 7.7 k/uL (3.8-10.6)
[2017-03-28 03:43] LABS: Partial Thromboplastin Time 24.5 sec (22.0-30.0); Prothrombin Time 10.3 sec (9.0-12.0)
[2017-03-28 03:46] LABS: ALT 31 U/L (9-52); AST 35 U/L (14-36); Albumin 4.4 g/dL (3.5-5.0); Alkaline Phosphatase 99 U/L (38-126); Anion Gap 11 mmol/L; Blood Urea Nitrogen 25 mg/dL (7-17); Calcium 9.6 mg/dL (8.4-10.2); Carbon Dioxide 26 mmol/L (22-30); Chloride 103 mmol/L (98-107); Glucose 109 mg/dL (74-99); Magnesium 2.1 mg/dL (1.6-2.3); Potassium 4.1 mmol/L (3.5-5.1); Sodium 140 mmol/L (137-145); Total Bilirubin 0.5 mg/dL (0.2-1.3); Total Protein 7.2 g/dL (6.3-8.2)
--- NOTE | 2017-03-28 03:58 | XR ---
EXAM: XR Chest, 2 Views CLINICAL HISTORY: ITS.REASON XR Reason: Pain TECHNIQUE: Frontal and lateral views of the chest. COMPARISON: Chest x-ray dated 04/10/2016. FINDINGS: Lungs: Questionable new minimal reticular opacity in the right perihilar region is nonspecific but may represent scar. Mild pulmonary hyperinflation. Pleural space: Interval placement of a left chest port with tip projecting over the cavoatrial junction. No evidence of pneumothorax. Heart: Unremarkable. No cardiomegaly. Mediastinum: See above. Bones/joints: Mild degenerative changes of the thoracic spine. IMPRESSION: Questionable new minimal reticular opacity in the right perihilar region is nonspecific but may represent scar. No evidence of acute cardiopulmonary process.
[2017-03-28 04:20] VITALS: BP 165/73; PULSE 72; TEMP 98
== END 2017-03-28 04:21 | disposition home or self-care (01) ==
LOC: EC 02:33
DX: R60.0 Localized edema (principal); T45.1X5A Adverse effect of antineoplastic and immunosuppressive drugs, initial encounter; C50.911 Malignant neoplasm of unspecified site of right female breast; M79.89 Other specified soft tissue disorders; E89.0 Postprocedural hypothyroidism; Z79.899 Other long term (current) drug therapy; Z88.0 Allergy status to penicillin; Z88.1 Allergy status to other antibiotic agents; Z88.8 Allergy status to other drugs, medicaments and biological substances; Z91.09 Other allergy status, other than to drugs and biological substances; Z92.21 Personal history of antineoplastic chemotherapy; Z92.3 Personal history of irradiation; Z98.890 Other specified postprocedural states
CPT/HCPCS: 36415; 71046; 80053; 81001; 83735; 83880; 84484; 85025; 85610; 85730; 93005; 99284

== ENCOUNTER → 2017-04-02 | Outpatient (CLI) | payer MEDICARE ==
--- NOTE | 2017-04-03 11:27 | ECHOF ---
Referral Reason:C50.411 Breast Ca, Z01.818 Chemo exposure MEASUREMENTS -------- HEIGHT: 162.6 cm WEIGHT: 72.6 kg BP: 148/73 RVIDd: 2.3 cm (< 3.3) IVSd: 0.8 cm (0.6 - 1.1) LVIDd: 4.8 cm (3.9 - 5.3) LVPWd: 0.9 cm (0.6 - 1.1) IVSs: 1.3 cm LVIDs: 2.8 cm LVPWs: 1.3 cm LAESV Index (A-L): 32.80 ml/m Ao Diam: 2.9 cm (2.0 - 3.7) AV Cusp: 1.7 cm (1.5 - 2.6) LA Diam: 3.3 cm (2.7 - 3.8) EPSS: 0.3 cm MV E Dillon: 0.79 m/s MV DecT: 320 ms MV A Dillon: 0.56 m/s MV E/A Ratio: 1.43 RAP: 5.00 mmHg RVSP: 34.52 mmHg MV EF SLOPE: 104.91 mm/s (70 - 150) MV EXCURSION: 1.92 cm (> 18.000) FINDINGS -------- Sinus rhythm. This was a technically good study. The left ventricular size is normal. Left ventricular wall thickness is normal. Overall left vent ricular systolic function is normal with, an EF between 55 - 60 %. The right ventricle is normal in size and function. LA is midly dilated 29-33ml/m2. RA appears enlarged. Aortic valve is trileaflet and is mildly thickened. There is no evidence of aortic regurgitation. There is no evidence of aortic stenosis. The mitral valve leaflets are mildly thickened. There is trace mitral regurgitation. Trace tricuspid regurgitation present. There is borderline pulmonary hypertension. The right vent ricular systolic pressure, as measured by Doppler, is 34.52mmHg. Trace/mild (physiologic) pulmonic regurgitation. The aortic root size is normal. Normal inferior vena cava with normal inspiratory collapse consistent with estimated right atrial pre ssure of 5 mmHg. The pericardium is normal. There is no pericardial effusion. CONCLUSIONS -------- 1. Sinus rhythm. 2. This was a technically good study. 3. The left ventricular size is normal. 4. Left ventricular wall thickness is normal. 5. Overall left ventricular systolic function is normal with, an EF between 55 - 60 %. 6. LA is midly dilated 29-33ml/m2. 7. RA appears enlarged. 8. Aortic valve is trileaflet and is mildly thickened. 9. The mitral valve leaflets are mildly thickened. 10. There is trace mitral regurgitation. 11. Trace tricuspid regurgitation present. 12. There is borderline pulmonary hypertension. 13. The right ventricular systolic pressure, as measured by Doppler, is 34.52mmHg. 14. Trace/mild (physiologic) pulmonic regurgitation. 15. The aortic root size is normal. 16. There is no pericardial effusion. ANALYSIS CONSULTANT: Jamey Rollins RDCS
== END | disposition home or self-care (01) ==
LOC: RADECHMAIN 12:53
PROVIDERS: ATTEND Internal Medicine Hematology & Oncology
DX: Z01.818 Encounter for other preprocedural examination (principal); C50.411 Malignant neoplasm of upper-outer quadrant of right female breast; I08.0 Rheumatic disorders of both mitral and aortic valves
CPT/HCPCS: 93306

== ENCOUNTER → 2017-05-15 | Outpatient (CLI) | payer MEDICARE | END | disposition home or self-care (01) | LOC: LABWHC1 10:58 | PROVIDERS: ATTEND Internal Medicine Endocrinology, Diabetes & Metabolism | DX: E03.8 Other specified hypothyroidism (principal) | CPT/HCPCS: 36415; 84443 ==

== ENCOUNTER → 2017-06-05 | Outpatient (CLI) | payer MEDICARE ==
--- NOTE | 2017-06-06 08:26 | MM ---
Reason for exam: follow-up at short interval from prior study. Last mammogram was performed 3 months ago. History: Patient is postmenopausal and has history of breast cancer at age 71. Malignant MG pre op needle loc RT of the right breast, September 05, 2016. Malignant US biopsy breast VAD RT of the right breast, March 14, 2016. Physical Findings: Nurse did not find any significant physical abnormalities on exam. MG 3D Diag Mammo W/Cad RT CC and MLO view(s) were taken of the right breast. Prior study comparison: March 08, 2017, left breast MG 3d diag mammo w/cad LT. March 14, 2016, right breast MG diagnostic mammo RT wo CAD. The breast tissue is heterogeneously dense. This may lower the sensitivity of mammography. Finding: Architectural distortion in the upper outer quadrant of the right breast consistent with known lumpectomy changes and treatments. There is no discrete abnormality otherwise. These results were verbally communicated with the patient and result sheet given to the patient on 06/05/17. ASSESSMENT: Benign, BI-RAD 2 RECOMMENDATION: Follow-up diagnostic mammogram of both breasts in 3 months. Back on schedule for September 2017.
== END ==
LOC: RADMAMWWP 12:38
PROVIDERS: ATTEND Surgery
DX: R92.8 Other abnormal and inconclusive findings on diagnostic imaging of breast (principal)
CPT/HCPCS: 77065; G0279

== ENCOUNTER → 2017-06-21 | Outpatient (CLI) | payer MEDICARE ==
--- NOTE | 2017-06-21 16:02 | P.GSHP ---
History of Present Illness H&P Date: 06/21/17 Patient is status post a lumpectomy and axillary dissection on the right side. The patient was treated with chemotherapy, and than had surgery followed by radiation, and than herceptin. She had some swelling questionably related to hereptin, and is now doing better. She had been seen in the ER and they had cut off her rings. At this time she continues to complain of neuropathy and swelling of your arms and ankles. Her breast is without complaints. Patient had a mammogram of hte right breast on 06-05-17 which was negative for cancer, post op changes noted. past surgery: 1. right lumpectomy and axillary node disection 2. removal of port 3. placemnet of port 4. thyroid right resection 5. sinus surgery past medical history: 1. neuropathy social hisotry: smoke: none alcohol: none drugs: none menarche: 13 menopause: 52 : 2, breast fed none BCP? hormones: none - Constitutional Constitutional: Denies chills, Denies fever - EENT Comment: right thyroid lobectomy Eyes: denies blurred vision, denies pain Ears: deny: decreased hearing, ear discharge, earache, tinnitus Ears, nose, mouth and throat: Denies headache, Denies sore throat - Breasts Breasts: bilateral: as per HPI - Cardiovascular Cardiovascular: Reports as per HPI - Respiratory Respiratory: Denies as per HPI, Denies congestion, Denies cough, Denies cough with sputum, Denies dyspnea, Denies excessive sputum, Denies hemoptysis, Denies home oxygen, Denies pain, Denies pain on inspiration, Denies pleurisy, Denies respiratory infections, Denies sleep apnea, Denies snoring, Denies wheezing - Gastrointestinal Gastrointestinal: Denies abdominal pain, Denies diarrhea, Denies nausea, Denies vomiting - Genitourinary (Female) Genitourinary: Denies dysuria, Denies hematuria - Musculoskeletal Comment: swelling of legs, neuropathy - Integumentary Integumentary: Denies pruritus, Denies rash - Neurological Comment: neuropathy left lower leg, and left hand - Psychiatric Psychiatric: Denies anxiety, Denies depression - Endocrine Endocrine: Reports weight change - Hematologic/Lymphatic Comment: no bleeding abnormalities - Allergic/Immunologic Comment: no seasonal allergies PCN allergy Past Medical History Past Medical History: Cancer, Hyperlipidemia, Thyroid Disorder Additional Past Medical History / Comment(s): HX OF THYROID NODULES., RIGHT BREAST CANCER- RECEIVING CHEMOTHERAPY SINCE APRIL 2016., VARICOSE VEINS., OCCASIONAL RINGING LEFT EAR.,STATES SWELLING IN LEGS AND ANKLES, SINUS DRAINAGE , DIARRRHEA & NAUSEA FROM CHEMO., HAS NUMBNESS IN TINGLING IN HANDS AND FEET- SOMETIMES DIFFICULTY WALKING . History of Any Multi-Drug Resistant Organisms: None Reported Past Surgical History: Tonsillectomy Additional Past Surgical History / Comment(s): rt thyroidectomy, rt breast biopsy, nasal surgery(Fx), LEFT Mediport. Past Anesthesia/Blood Transfusion Reactions: Motion Sickness, Postoperative Nausea & Vomiting (PONV) Past Psychological History: Anxiety Smoking Status: Never smoker Past Alcohol Use History: None Reported Past Drug Use History: None Reported - Past Family History Mother Family Medical History: No Reported History Medications and Allergies Home Medications Medication Instructions Recorded Confirmed Type Levothyroxine Sodium [Tirosint] 100 mcg PO DAILY 04/10/16 03/28/17 History Allergies Allergy/AdvReac Type Severity Reaction Status Date / Time Penicillins Allergy Severe Anaphylaxis Verified 03/28/17 02:46 adhesive tape Allergy Rash/Hives Verified 03/28/17 02:46 levothyroxine sodium Allergy Diarrhea Verified 03/28/17 02:46 [id number] Reductase Allergy muscle Verified 03/28/17 02:46 Inhibitor aches sulfamethoxazole Allergy Rash/Hives Verified 03/28/17 02:46 [From Bactrim] trimethoprim [From Bactrim] Allergy Rash/Hives Verified 03/28/17 02:46 steroid Allergy Severe swelling Uncoded 03/28/17 02:46 of hands Surgical - Exam - General well developed, well nourished, no distress - Eyes normal ocular movement - ENT normal pinna, normal nares, normal mucosa, no hearing loss - Neck no masses, trachea midline thyroid nodule: absent (right thyroid resection) - Respiratory normal respiratory effort, clear to auscultation - Cardiovascular Rhythm: regular Heart Sounds: normal: S1, S2 - Abdomen no rebound or gaurding Abdomen: soft - Integumentary no rash, no abnormal pigmentation - Neurologic no disoriented, no combative - Musculoskeletal bilateral ankel swelling normal gait, normal posture - Psychiatric oriented to time, oriented to person, oriented to place, speech is normal, memory intact Breast exam: right breast changes from post-op no masses of concern left breast: no msses bilateral axilla: no adenopathy of concern Assessment and Plan Assessment: 1. history of breast cancer 2. 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 lower extremity swelling 4. no evidence of recurrent cancer Plan: 1. repeat mammogram and appointment in 3 months 2. medical management of neuropathy and swelling CC: Latosha Sheffield
[2017-06-21 16:06] VITALS: BP 137/74; PULSE 58; TEMP 97.3; BMI 28.3
== END | disposition home or self-care (01) ==
LOC: WWCWWP 15:32
PROVIDERS: ATTEND Surgery
DX: G62.9 Polyneuropathy, unspecified (principal); Z53.9 Procedure and treatment not carried out, unspecified reason

== ENCOUNTER → 2017-07-16 | Outpatient (CLI) | payer MEDICARE | END | disposition home or self-care (01) | LOC: LABWHC1 11:08 | PROVIDERS: ATTEND Internal Medicine Endocrinology, Diabetes & Metabolism | DX: E03.8 Other specified hypothyroidism (principal) | CPT/HCPCS: 36415; 84443 ==

== ENCOUNTER → 2017-09-10 | Outpatient (CLI) | payer MEDICARE ==
--- NOTE | 2017-09-10 14:07 | MM ---
Reason for exam: additional evaluation requested from prior study. Last mammogram was performed 3 months ago. History: Patient is postmenopausal and has history of breast cancer at age 71. Radiation therapy, November 2016. Malignant MG pre op needle loc RT of the right breast, September 05, 2016. Chemotherapy, August 2016. Malignant US biopsy breast VAD RT of the right breast, March 14, 2016. Physical Findings: Nurse did not find any significant physical abnormalities on exam. MG 3D Diag Mammo W/Cad ANTON Bilateral CC and MLO view(s) were taken. XCCL view(s) were taken of the right breast. Prior study comparison: June 05, 2017, right breast MG 3d diag mammo w/cad RT. March 08, 2017, left breast MG 3d diag mammo w/cad LT. The breast tissue is heterogeneously dense. This may lower the sensitivity of mammography. Post surgical and post therapy changes right breast with a Biozorb implant in place. Short interval follow up right breast recommended to assess evolving therapy changes. No significant new findings when compared with previous films. These results were verbally communicated with the patient and result sheet given to the patient on 09/10/17. ASSESSMENT: Probably benign, BI-RAD 3 RECOMMENDATION: Follow-up diagnostic mammogram of the right breast in 6 months.
--- NOTE | 2017-09-10 19:00 | XR ---
EXAMINATION TYPE: XR chest 2V DATE OF EXAM: 09/10/2017 COMPARISON: Prior chest x-ray 03/28/2017 HISTORY: Breast carcinoma TECHNIQUE: Frontal and lateral views of the chest are obtained. FINDINGS: Interval removal of the left-sided Port-A-Cath. Heart is enlarged. Prominent lung volumes could be indicative of COPD. Postop changes are noted to the right breast. Guillermina are present. No ev ident airspace disease, pneumothorax, or pleural effusion. Pulmonary vascularity and annie are within normal limits. Bone mineralization is stable. IMPRESSION: No acute cardiopulmonary process.
== END | disposition home or self-care (01) ==
LOC: RADMAMWWP 12:35
PROVIDERS: ATTEND Internal Medicine Hematology & Oncology
DX: Z08 Encounter for follow-up examination after completed treatment for malignant neoplasm (principal); R19.7 Diarrhea, unspecified; Z17.1 Estrogen receptor negative status [ER-]; Z85.3 Personal history of malignant neoplasm of breast
CPT/HCPCS: 71046; 77066; G0279; 77062

== ENCOUNTER → 2017-09-20 | Outpatient (CLI) | payer MEDICARE ==
[2017-09-20 10:30] VITALS: BP 148/67; PULSE 58; BMI 27.9
--- NOTE | 2017-09-20 11:03 | P.GSHP ---
History of Present Illness H&P Date: 09/20/17 The patient is a 72-year-old white female who is status post right breast lumpectomy and axillary node dissection in September 2016. She received preoperative chemotherapy had surgery and then had radiation therapy subsequently she had her septum but had an adverse reaction when this was unable to finish the Herceptin. She is no longer taking any therapy related to the breast cancer. At this time the patient is feeling well with the exception of some neuropathy related to the chemotherapy. She had a recent chest x-ray performed on which does not show any acute cardiopulmonary process. Additionally she had a bilateral mammogram the findings reveal postsurgical and post-therapeutic changes in the right breast with a BioSorb in place implant in place. Short interval follow-up with a right breast recommended to assess evolving therapy changes. Family History: 1. maternal aunt: lymphoma 2. maternal aunt: breast cancer, at 40 from breast cancer Hormonal history: Menarche: 13 Pregnancies: 2, did not breast-feed, first born at 28 Menopause: 52 Hormones: Negative control pills:none Past Surgical History: 1. Right thyroid lobectomy 2. Right lumpectomy and axillary node dissection 3. ENT surgery related to have broken nose at the age of 18 Past medical history: 1. neropathy Social History: smoke: none slcohol: none drugs: none - Constitutional Constitutional: Denies chills, Denies fever - EENT Eyes: denies blurred vision, denies pain Ears: left: tinnitus, deny: decreased hearing Ears, nose, mouth and throat: Denies headache, Denies sore throat - Breasts Breasts: bilateral: as per HPI - Cardiovascular Cardiovascular: Denies chest pain, Denies shortness of breath - Respiratory Respiratory: Denies cough, Denies 7 - Gastrointestinal Gastrointestinal: Denies abdominal pain, Denies diarrhea, Denies nausea, Denies vomiting - Menstruation Menstruation: Reports postmenopausal - Musculoskeletal Comment: 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 - Integumentary Integumentary: Reports rash, Denies pruritus - Neurological Neurological: Reports as per HPI - Psychiatric Psychiatric: Denies anxiety, Denies depression - Endocrine Comment: thyroid resected - Hematologic/Lymphatic Comment: none - Allergic/Immunologic Comment: none seasonal, see list of medications Past Medical History Past Medical History: Cancer, Hyperlipidemia, Thyroid Disorder Additional Past Medical History / Comment(s): HX OF THYROID NODULES., RIGHT BREAST CANCER- RECEIVING CHEMOTHERAPY SINCE APRIL 2016., VARICOSE VEINS., OCCASIONAL RINGING LEFT EAR.,STATES SWELLING IN LEGS AND ANKLES, SINUS DRAINAGE , DIARRRHEA & NAUSEA FROM CHEMO., HAS NUMBNESS IN TINGLING IN HANDS AND FEET- SOMETIMES DIFFICULTY WALKING . History of Any Multi-Drug Resistant Organisms: None Reported Past Surgical History: Tonsillectomy Additional Past Surgical History / Comment(s): rt thyroidectomy, rt breast biopsy, nasal surgery(Fx), LEFT Mediport. Past Anesthesia/Blood Transfusion Reactions: Motion Sickness, Postoperative Nausea & Vomiting (PONV) Past Psychological History: Anxiety Smoking Status: Never smoker Past Alcohol Use History: None Reported Past Drug Use History: None Reported - Past Family History Mother Family Medical History: No Reported History Medications and Allergies Home Medications Medication Instructions Recorded Confirmed Type Levothyroxine Sodium [Tirosint] 88 mcg PO DAILY 04/10/16 09/20/17 History Allergies Allergy/AdvReac Type Severity Reaction Status Date / Time Penicillins Allergy Severe Anaphylaxis Verified 03/28/17 02:46 adhesive tape Allergy Rash/Hives Verified 03/28/17 02:46 levothyroxine sodium Allergy Diarrhea Verified 03/28/17 02:46 [id number]-Oag-Ecq Reductase Allergy muscle Verified 03/28/17 02:46 Inhibitor aches sulfamethoxazole Allergy Rash/Hives Verified 03/28/17 02:46 [From Bactrim] trimethoprim [From Bactrim] Allergy Rash/Hives Verified 03/28/17 02:46 steroid Allergy Severe swelling Uncoded 03/28/17 02:46 of hands Surgical - Exam Vital Signs Pulse BP Pulse Ox 58 L 148/67 97 09/20/17 10:22 09/20/17 10:22 09/20/17 10:22 - General moderate distress, no pain - Eyes normal ocular movement - ENT normal pinna, normal nares - Neck no masses, trachea midline, no venous distension - Respiratory normal respiratory effort, clear to auscultation - Cardiovascular Rhythm: regular Heart Sounds: normal: S1, S2 - Abdomen Abdomen: soft, non tender, no guarding, no rigid, no rebound - Neurologic no disoriented, no combative - Musculoskeletal kyphosis - Psychiatric oriented to time, oriented to person, oriented to place, speech is normal, memory intact Breast examination: Right breast: Multiple positional exam reveals changes related to lumpectomy and radiation therapy the BioSorb still appears to be palpable Right axilla: No adenopathy of concern Left breast: Multiple positional exam no dominant masses or nodules of concern Left axilla colon just shotty small adenopathy of not of concern Results mammogram and chest x-ray results reviewed Assessment and Plan Assessment: Impression/plan: 1. Status post right breast lumpectomy and axillary node dissection approximately one year ago 2. No evidence of recurrent cancer 3. History of neuropathy 4. Status post thyroid resection on thyroid replacement Plan: 1. No evidence of recurrent breast cancer at this time 2. Right breast mammogram in 6 months time with repeat physician exam at that time 3. Medical management of medical problems 4. Continue follow-up with medical oncology CC: Dr. Latosha Cortes
== END ==
LOC: WWCWWP 09:34
PROVIDERS: ATTEND Surgery
DX: Z53.9 Procedure and treatment not carried out, unspecified reason (principal)

== ENCOUNTER → 2018-01-21 | Outpatient (CLI) | payer MEDICARE | END | disposition home or self-care (01) | LOC: LABWHC1 11:20 | PROVIDERS: ATTEND Internal Medicine Endocrinology, Diabetes & Metabolism | DX: E03.8 Other specified hypothyroidism (principal) | CPT/HCPCS: 36415; 84443 ==

== ENCOUNTER → 2018-03-27 | Outpatient (CLI) | payer MEDICARE ==
--- NOTE | 2018-03-27 14:48 | MM ---
Reason for exam: follow-up at short interval from prior study. Last mammogram was performed 6 months ago. History: Patient is postmenopausal and has history of breast cancer at age 71. Radiation therapy, November 2016. Malignant MG pre op needle loc RT of the right breast, September 05, 2016. Chemotherapy, August 2016. Malignant US biopsy breast VAD RT of the right breast, March 14, 2016. Physical Findings: Nurse Summary: 1 x 1cm nodule in the right breast at 10 o'clock near scar (nurse ts). MG 3D Diag Mammo W/Cad RT CC and MLO view(s) were taken of the right breast. Prior study comparison: September 10, 2017, bilateral MG 3d diag mammo w/cad ANTON. June 05, 2017, right breast MG 3d diag mammo w/cad RT. March 08, 2017, left breast MG 3d diag mammo w/cad LT. March 07, 2016, bilateral MG 3d diag mammo w/cad ANTON. The breast tissue is heterogeneously dense. This may lower the sensitivity of mammography. At the anterior margin and inferior medial aspect of the right upper outer quadrant lumpectomy site there are two new 3mm masses. Ultrasound will be performed. These results were verbally communicated with the patient and result sheet given to the patient on 03/27/18. ASSESSMENT: Incomplete: need additional imaging evaluation, BI-RAD 0 RECOMMENDATION: Ultrasound of the right breast.
--- NOTE | 2018-03-27 14:49 | USB ---
Reason for exam: additional evaluation requested from abnormal screening. History: Patient is postmenopausal and has history of breast cancer at age 71. Radiation therapy, November 2016. Malignant MG pre op needle loc RT of the right breast, September 05, 2016. Chemotherapy, August 2016. Malignant US biopsy breast VAD RT of the right breast, March 14, 2016. US Breast Limited RT Right limited breast ultrasound including focal area of concern, retroareolar and axilla demonstrates no cystic or solid lesion seen. Corresponds to mammogram. Lumpectomy site at 9 o'clock. These results were verbally communicated with the patient and result sheet given to the patient on 03/27/18. ASSESSMENT: Probably benign, BI-RAD 3 RECOMMENDATION: Follow-up diagnostic mammogram of both breasts in 6 months.
== END | disposition home or self-care (01) ==
LOC: RADMAMWWP 12:46
PROVIDERS: ATTEND Surgery
DX: Z08 Encounter for follow-up examination after completed treatment for malignant neoplasm (principal); R92.8 Other abnormal and inconclusive findings on diagnostic imaging of breast; Z85.3 Personal history of malignant neoplasm of breast
CPT/HCPCS: 77065; 76642; G0279; 77061

== ENCOUNTER → 2018-04-04 | Outpatient (CLI) | payer MEDICARE ==
[2018-04-04 13:13] VITALS: BP 147/67; PULSE 78; RESP 18; TEMP 96.4; BMI 29.0
--- NOTE | 2018-04-04 13:36 | P.PN ---
Subjective Progress Note Date: 04/04/18 Principal diagnosis: Breast lumpectomy and axillary node dissection September 2016 Natali is a 72-year-old white female who is status post right breast lumpectomy and axillary node dissection in September 2016. She received preoperative chemotherapy and had surgery and then had radiation therapy subsequently. She had an adverse reaction to Herceptin and was not able to finish the Herceptin. She is no longer taking any therapy related to the breast cancer. At this time the patient is feeling well with the exception of some neuropathy related to the chemotherapy. She had a bilateral mammogram and ultrasound of the right breast on 03-27-18. The patient was noted to have two 3 mm areas of concern in the right breast, and nothing of concern on the ultrasound. She will have a repeat mammogram of both breast in 6 months. Objective - Vital Signs Vital signs: Vital Signs Temp 96.4 F L 04/04/18 13:05 Pulse 78 04/04/18 13:05 Resp 18 04/04/18 13:05 BP 147/67 04/04/18 13:05 Pulse Ox 98 04/04/18 13:05 Intake & Output 04/03/18 04/04/18 04/04/18 18:59 06:59 18:59 Weight 78.018 kg - Exam BMI 29.1 - Constitutional General appearance: Present: average body habitus - EENT Eyes: Present: EOMI ENT: Present: hearing grossly normal - Neck Neck: Present: normal ROM - Respiratory Respiratory: bilateral: CTA - Cardiovascular Rhythm: regular Heart sounds: normal: S1, S2 - Gastrointestinal General gastrointestinal: Present: soft - Integumentary Integumentary: Present: normal turgor - Psychiatric Psychiatric: Present: A&O x's 3, appropriate affect, intact judgment & insight - Additional findings Additional findings: Right breast examination: Right breast: Well-healed scar from prior surgery with some retraction at the area of the scar, no other dominate masses or nodules of concern right axilla: no adenopathy of concern left breast: no dominate masses of concern on multipositional exam left axilla: no adenopathy of concern Assessment and Plan Assessment: Impression: 1. status post right lumpectomy and axillary node disection 2. status post chemotherapy 3. status post radiation therapy 4. 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 fullness right breast at lumpectomy site 6. No evidence of recurrent cancer 7. abnormal mammogram Plan 1. core biopsy of right breast 2. continue to follow with radiation and medical oncology 3. medical managment of medical conditions 4. repeat bilateral mammogram in 6 months CC: Dr. Cortes
== END ==
LOC: WWCWWP 12:56
PROVIDERS: ATTEND Surgery
DX: Z53.9 Procedure and treatment not carried out, unspecified reason (principal)

== ENCOUNTER → 2018-04-12 | Outpatient (CLI) | payer MEDICARE | END | disposition home or self-care (01) | LOC: LABWHC1 11:27 | PROVIDERS: ATTEND Internal Medicine Endocrinology, Diabetes & Metabolism | DX: E03.8 Other specified hypothyroidism (principal) | CPT/HCPCS: 36415; 84443 ==

== ENCOUNTER → 2018-05-10 | Outpatient (CLI) | payer MEDICARE ==
[2018-05-10 08:54] VITALS: BP 137/87; PULSE 65; RESP 18; TEMP 97.7; BMI 28.6
--- NOTE | 2018-05-10 09:47 | P.PN ---
Subjective Progress Note Date: 05/10/18 Natali is a 73-year-old white female who is status post right breast lumpectomy and axillary lymph node dissection in September 2016. She received preoperative chemotherapy and had surgery and then radiation therapy subsequently. She had an adverse reaction to her septum was unable to finish the Herceptin. She is no longer under any therapy related to the breast cancer. She was seen in March 2018 and there was a question of some fullness at the lumpectomy site for which we considered doing a core biopsy. She did have a bilateral mammogram and ultrasound of the right breast on 03/27/2018. Patient was noted to have to 3 mm areas of concern in the right breast but nothing of concern on the ultrasound. She is to have a repeat mammogram of both breasts in 6 months. Operative report is 8117 reviewed patient did have a 3 x 4 cm BioSorb placed. Objective - Vital Signs Vital signs: Vital Signs Temp 97.7 F 05/10/18 08:51 Pulse 65 05/10/18 08:51 Resp 18 05/10/18 08:51 BP 137/87 05/10/18 08:51 Pulse Ox 99 05/10/18 08:51 Intake & Output 05/09/18 05/10/18 05/10/18 18:59 06:59 18:59 Weight 78.018 kg - Exam BMI 28.6 - Constitutional General appearance: Present: average body habitus - EENT Eyes: Present: EOMI ENT: Present: hearing grossly normal - Neck Neck: Present: normal ROM - Respiratory Respiratory: bilateral: CTA - Cardiovascular Rhythm: regular Heart sounds: normal: S1, S2 - Gastrointestinal General gastrointestinal: Present: soft - Integumentary Integumentary: Present: normal turgor - Psychiatric Psychiatric: Present: A&O x's 3, appropriate affect - Additional findings Additional findings: Breast examination: Right breast: Patient status post lumpectomy of the right breast, breast is smaller than the left side, firmness at the area of BioSorb placement scar tissue versus disease Right axilla: No adenopathy of concern Left breast: Multiple positional exam no dominant masses or nodules of concern Left axilla: No adenopathy of concern Assessment and Plan Assessment: Impression: 1. Very dense tissue at the area of the prior lumpectomy and BioSorb placement 2. Status post right breast lumpectomy axillary node dissection 2016 3. History of neuropathy 4. Status post thyroid resection and thyroid replacement treatment I discussed with the patient that the area of concern is most likely scar tissue however it is very firm and she wishes to have this sample to assure that there is nothing malignant in this region. I would concur that this is a reasonable approach and we have agreed to do a core biopsy. Plan: Core biopsy right breast near the prior lumpectomy site to rule out recurrent disease.
--- NOTE | 2018-05-10 09:50 | P.PCN ---
Date of Procedure: 05/10/18 Preoperative Diagnosis: Prior right breast cancer Postoperative Diagnosis: same Procedure(s) Performed: right breast core biopsy Anesthesia: local Surgeon: Marlee Cool Estimated Blood Loss (ml): 1 Pathology: other (breast tissue) Condition: stable Disposition: same day Indications for Procedure: Dense breast tissue near the site of prior lumpectomy Description of Procedure: The patient was taken to the procedure room and the area of concern in the right breast was prepped using Betadine. An 18-gauge spring-loaded core biopsy needle was used to obtain a sample. The area of the skin and breast was anesthetized using 1% lidocaine. A small zahra was made in the skin using a scalpel. The needle was placed in the correct location and 5 core biopsies were obtained. The patient tolerated the procedure in stable condition. The specimen was sent to pathology. The patient will follow up next week.
== END ==
LOC: WWCWWP 08:43
PROVIDERS: ATTEND Surgery
DX: N64.89 Other specified disorders of breast (principal)
CPT/HCPCS: 88305; 88341; 88342

== ENCOUNTER → 2018-05-17 | Outpatient (CLI) | payer MEDICARE ==
[2018-05-17 13:23] VITALS: BP 130/61; PULSE 72; RESP 16; TEMP 96.1; BMI 29.5
--- NOTE | 2018-05-17 13:41 | P.PN ---
Progress Note - Text Progress Note Date: 05/17/18 Natali is a 73-year-old white female status post right breast core biopsy on 05-10-18. She had previously undergone a right breast lumpectomy and sentinel node biopsy and 8117. She received neoadjuvant chemotherapy. Postprocedure her tumor was a T2 N1 M0 grade 3 lesion. Pathology from the core biopsy on 05-10-18 was benign consistent with fibrosis, patchy slight histiocytic infiltration. She has no complaints since the biopsy. I discussed these results with the patient and her . Physical exam: Examination of the right breast does not reveal any hematoma or infection Impression: 1. Status post right lumpectomy and axillary node dissection/ Tumor [id number] lesion 2. Status post chemotherapy, developed neuropathy/attempted to take herceptin but was unable to finish this 3. Status post radiation therapy 4. Neuropathy related to chemotherapy 5. Status post core biopsy area of thickening a lumpectomy site/pathology benign 6. No evidence of recurrent cancer Plan: 1. Repeat physician exam here in September with repeat bilateral mammogram at that time 2. Continue to follow with medical and radiation oncology CC: Dr. Chavez
== END | disposition home or self-care (01) ==
LOC: WWCWWP 13:05
PROVIDERS: ATTEND Surgery
DX: Z53.9 Procedure and treatment not carried out, unspecified reason (principal)

== ENCOUNTER → 2018-09-25 | Outpatient (CLI) | payer MEDICARE ==
--- NOTE | 2018-09-25 11:12 | MM ---
Reason for exam: follow-up at short interval from prior study. Last mammogram was performed 6 months ago. History: Patient is postmenopausal and has history of breast cancer at age 71. Benign excisional biopsy of the right breast, May 2018. Radiation therapy, November 2016. Malignant MG pre op needle loc RT of the right breast, September 05, 2016. Chemotherapy, August 2016. Malignant US biopsy breast VAD RT of the right breast, March 14, 2016. Physical Findings: Nurse did not find any significant physical abnormalities on exam. MG 3D Diag Mammo W/Cad ANTON Bilateral CC and MLO view(s) were taken. XCCL view(s) were taken of the right breast. Prior study comparison: March 27, 2018, right breast MG 3d diag mammo w/cad RT. September 10, 2017, bilateral MG 3d diag mammo w/cad ANTON. Finding: There is a 5 mm equal density (isodense), microlobulated round mass located 6 cm from the nipple in the lower inner quadrant, middle position of the right breast. Finding is changed since March 27, 2018 and September 10, 2017. These results were verbally communicated with the patient and result sheet given to the patient on 09/25/18. ASSESSMENT: Incomplete: need additional imaging evaluation, BI-RAD 0 RECOMMENDATION: Ultrasound of the right breast. (Patient refused ultrasound today. She wants to check with insurance and talk to Dr. Gomez about it at follow up appointment. Notified Brittany to review with Dr. Gomez and contact patient if needed)
== END | disposition home or self-care (01) ==
LOC: RADMAMWWP 10:00
PROVIDERS: ATTEND Surgery
DX: Z08 Encounter for follow-up examination after completed treatment for malignant neoplasm (principal); Z85.3 Personal history of malignant neoplasm of breast
CPT/HCPCS: 77066; G0279; 77062

== ENCOUNTER → 2018-10-10 | Outpatient (CLI) | payer MEDICARE | END | disposition home or self-care (01) | LOC: LABWHC1 13:51 | PROVIDERS: ATTEND Internal Medicine Endocrinology, Diabetes & Metabolism | DX: E03.8 Other specified hypothyroidism (principal) | CPT/HCPCS: 36415; 84443 ==

== ENCOUNTER → 2018-10-17 | Outpatient (CLI) | payer MEDICARE ==
--- NOTE | 2018-10-17 13:54 | USB ---
Reason for exam: additional evaluation requested from prior study. History: Patient is postmenopausal and has history of breast cancer at age 71. Benign excisional biopsy of the right breast, May 2018. Radiation therapy, November 2016. Malignant MG pre op needle loc RT of the right breast, September 05, 2016. Chemotherapy, August 2016. Malignant US biopsy breast VAD RT of the right breast, March 14, 2016. Physical Findings: Nurse Summary: biozorb marker (nurse mj). US Breast Limited RT Right limited breast ultrasound including focal area of concern, retroareolar and axilla demonstrates no cystic or solid lesion seen. These results were verbally communicated with the patient and result sheet given to the patient on 10/17/18. ASSESSMENT: Probably benign, BI-RAD 3 RECOMMENDATION: Follow-up diagnostic mammogram of the right breast in 6 months.
== END | disposition home or self-care (01) ==
LOC: RADUSWWP 12:35
PROVIDERS: ATTEND Internal Medicine Hematology & Oncology
DX: R92.8 Other abnormal and inconclusive findings on diagnostic imaging of breast (principal)

== ENCOUNTER → 2018-10-18 | Outpatient (CLI) | payer MEDICARE ==
[2018-10-18 10:56] VITALS: BP 134/77; PULSE 56; RESP 18; TEMP 97.6; BMI 29.2
--- NOTE | 2018-10-18 11:46 | P.PN ---
Subjective Progress Note Date: 10/18/18 Natali is 73 year old white female status post lumpectomy and axillary node dissection in September 2016. She had received preoperative chemotherapy and radiation therapy. She had an adverse reaction to Herceptin and was unable to finish this. This was a stage II B T2 N1aM0 ER/NE negative HER-2 positive tumor. The patient had a bilateral mammogram on 820 119. This revealed a 5 mm equal density mass 6 cm from the nipple and an ultrasound was recommended. On ultrasound the patient was noted to have no cystic or solid lesion of concern and the plan mammogram of the right breast in 6 months was recommended. No lesions of concern were identified in the left breast on her mammogram. The patient has no new masses or nodules in her breast. She did have a Biozorb placed at the time of her initial lumpectomy and this remains present and is uncomfortable to palpation. She otherwise has no history of any trauma or infection in the breast recently. No nipple discharge or skin changes of concern. Patient is complaining of asymmetry of the breast. She is also experiencing back discomfort and notching of her shoulders related to heaviness of the breast. She states that her breast do not fit well. Family history: maternal aunt: lymphoma paternal aunt: breast cancer paternal cousin: two cousin Hormonal History: menarche: 13 , breast fed none, age at first :28 menopause: 52 BCP: none hormones: none Past Surgical History: 1. right breast lumpectomy and axillary node dissection 2. thyroid resection 3. sinus surgery Past Medical History: 1. hypothyroid 2. chemo related neuropathy Social History: none alcohol: none drugs: none Review of systems: HEENT: Tinnitus Lungs: Negative Cardiac: Negative GI: Negative. 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 Hematologic: Negative Psychiatric:none allergies: PCN, bactrim, tape, see list Objective - Vital Signs Vital signs: Vital Signs Temp 97.6 F 10/18/18 10:51 Pulse 56 L 10/18/18 10:51 Resp 18 10/18/18 10:51 BP 134/77 10/18/18 10:51 Pulse Ox 98 10/18/18 10:51 Intake & Output 10/17/18 10/18/18 10/18/18 18:59 06:59 18:59 Weight 77.111 kg - Exam BMI 29.2 - Constitutional General appearance: Present: average body habitus - EENT Eyes: Present: EOMI ENT: Present: hearing grossly normal - Neck Neck: Present: normal ROM - Respiratory Respiratory: bilateral: CTA - Cardiovascular Rhythm: regular Heart sounds: normal: S1, S2 - Gastrointestinal General gastrointestinal: Present: soft - Integumentary Integumentary: Present: normal turgor - Musculoskeletal Musculoskeletal: Present: gait normal - Psychiatric Psychiatric: Present: A&O x's 3, appropriate affect - Additional findings Additional findings: Breast examination: Right breast: The breast is considerably smaller than left breast related to lumpectomy and radiation therapy, the BioSorb remains palpable but has decreased from her prior exam the patient and multiple positional exam has no evidence of recurrent cancer the nipple areolar complex is pointing laterally in this breast Right axilla: No adenopathy of concern Left breast: The left breast is larger than the right breast multiple positional exam no dominant masses or nodules of concern there is grade 3 ptosis Left axilla: No adenopathy of concern Assessment and Plan Assessment: Impression: 1. Patient status post lumpectomy radiation therapy for stage II right breast cancer no evidence of recurrence 2. Asymmetry of the breast 3. 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 Repeat right breast mammogram in 6 months 2. Patient is going to consider having asymmetry procedure of the left breast 3. Patient to follow-up to discuss possible symmetry operation CC: DR. Sheffield
== END ==
LOC: WWCWWP 10:43
PROVIDERS: ATTEND Surgery
DX: Z53.9 Procedure and treatment not carried out, unspecified reason (principal)

== ENCOUNTER → 2018-11-07 | Outpatient (CLI) | payer MEDICARE ==
--- NOTE | 2018-11-07 16:26 | P.PN ---
Subjective Progress Note Date: 11/07/18 Principal diagnosis: right breast cancer/arm swelling Natali is 73 year old white female status post right breast lumpectomy and axillary node dissection in September 2016. She had received preoperative chemotherapy and radiation therapy. She had an adverse reaction to Herceptin and was unable to finish this. This was a stage II B T2 N1aM0 ER/MT negative HER-2 positive tumor. The patient had a bilateral mammogram on 820 119. This revealed a 5 mm equal density mass 6 cm from the nipple and an ultrasound was recommended. On ultrasound the patient was noted to have no cystic or solid lesion of concern and the plan mammogram of the right breast in 6 months was recommended. No lesions of concern were identified in the left breast on her mammogram. The patient has no new masses or nodules in her breast. She did have a Biozorb placed at the time of her initial lumpectomy and this remains present and is uncomfortable to palpation. She otherwise has no history of any trauma or infection in the breast recently. No nipple discharge or skin changes of concern. Patient is complaining of asymmetry of the breast. She is also experiencing back discomfort and notching of her shoulders related to heaviness of the breast. She states that her breast do not fit well. The patient states that 5 days ago she noted that her right arm was swollen. She did not have any trauma to the arm. She did have 2 small cuts on her right hand approximately 2 weeks ago. There was no evidence of any specific infection related to the cuts. The right arm is not painful but does feel funny to her because it is swollen. She has no other history of any trauma or infection in the right upper extremity. Family history: maternal aunt: lymphoma paternal aunt: breast cancer paternal cousin: two cousin Hormonal History: menarche: 13 , breast fed none, age at first :28 menopause: 52 BCP: none hormones: none Past Surgical History: 1. right breast lumpectomy and axillary node dissection 2. thyroid resection 3. sinus surgery Past Medical History: 1. hypothyroid 2. chemo related neuropathy Social History: none alcohol: none drugs: none Review of systems: HEENT: Tinnitus Lungs: Negative Cardiac: Negative GI: Negative. 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 Hematologic: Negative Psychiatric:none allergies: PCN, bactrim, tape, see list Objective - Vital Signs Vital signs: Vital Signs Temp 98.6 F 11/07/18 15:44 Pulse 62 11/07/18 15:44 Resp 18 11/07/18 15:44 BP 163/78 11/07/18 15:44 Pulse Ox 99 11/07/18 15:44 Intake & Output 11/06/18 11/07/18 11/07/18 18:59 06:59 18:59 Weight 77.111 kg - Exam BMI 29.2 - Constitutional General appearance: Present: average body habitus - EENT Eyes: Present: EOMI ENT: Present: hearing grossly normal - Neck Neck: Present: normal ROM - Respiratory Respiratory: bilateral: CTA - Cardiovascular Rhythm: regular Heart sounds: normal: S1, S2 - Integumentary Integumentary Comment(s): Lymphedema right upper extremity greatest in the hand and forearm Patient did have evidence of 2 small cuts in her right hand lateral aspect of the fourth digit distally and second digit and the proximal phalanx area did not look like they are infected at this time No other areas of any trauma or infection in the right upper extremity - Musculoskeletal Musculoskeletal: Present: gait normal - Psychiatric Psychiatric: Present: A&O x's 3, appropriate affect, intact judgment & insight - Additional findings Additional findings: Right wrist 18 cm compared to left wrist 15-1/2 cm Right breast exam no evidence of recurrent cancer well-healed scars from prior surgery Mid axilla: No adenopathy or recurrence noted in the axilla Assessment and Plan Assessment: Impression: 1. Status post right breast lumpectomy axillary node dissection 2. No evidence of recurrent cancer no axillary disease at this time 3. Lymphedema right upper extremity 4. Peripheral neuropathy 5. Status post thyroid resection on thyroid replacement 6. No evidence of any infection Plan: 1. Evidence of recurrent breast cancer at this time 2. Lymphedema will scheduled patient to see lymphedema specialist 3. continue with medical oncology 4. Is planning symmetry equalization procedure in the near future 5. Ultrasound of the right axilla rule out any adenopathy resulting in lymphedema 6. We discussed taking an antibiotic however patient has multiple ALLERGIES and wishes to see lymphedema specialist first Cc: Dr. Latosha Cortes
[2018-11-07 16:39] VITALS: BP 163/78; PULSE 62; RESP 18; TEMP 98.6; BMI 29.2
== END | disposition home or self-care (01) ==
LOC: WWCWWP 14:54
PROVIDERS: ATTEND Surgery
DX: Z53.9 Procedure and treatment not carried out, unspecified reason (principal)

== ENCOUNTER → 2018-11-08 | Outpatient (CLI) | payer MEDICARE ==
--- NOTE | 2018-11-08 13:47 | USB ---
Reason for exam: clinical finding. History: Patient is postmenopausal and has history of breast cancer at age 71. Benign excisional biopsy of the right breast, May 2018. Radiation therapy, November 2016. Malignant MG pre op needle loc RT of the right breast, September 05, 2016. Chemotherapy, August 2016. Malignant US biopsy breast VAD RT of the right breast, March 14, 2016. Physical Findings: Breast exam performed by Dr. Cool. US Breast Axilla RT Right breast axilla ultrasound demonstrates a 1.6 x 1.2 x 0.8cm lymph node at the axilla, lymph node, some cortical thickening. May be reactive secondary to known right arm infection or neoplastic. These results were verbally communicated with the patient and result sheet given to the patient on 11/08/18. ASSESSMENT: Probably benign, BI-RAD 3 RECOMMENDATION: Surgical consultation of the right breast.
== END | disposition home or self-care (01) ==
LOC: RADUSWWP 10:11
PROVIDERS: ATTEND Surgery
DX: Z85.3 Personal history of malignant neoplasm of breast (principal)

== ENCOUNTER 2018-11-15 12:01 | Day surgery (SDC) | payer MEDICARE ==
[2018-11-15 13:09] VITALS: RESP 18; TEMP 97.6
[2018-11-15 14:13] VITALS: BP 137/70; PULSE 74
--- NOTE | 2018-11-15 16:21 | US ---
EXAMINATION TYPE: US biopsy lymph node DATE OF EXAM: 11/15/2018 HISTORY: Right axillary adenopathy. FINDINGS: Maximal barrier technique was utilized. The skin overlying a suitable path to the patient' s right axillary node was localized with ultrasound and the overlying skin prepped and draped. Ultra sound was utilized with sterile technique. Lidocaine was used for local anesthesia. A skin zahra was made with a scalpel. A 20-gauge needle was advanced under direct ultrasound guidance and core speci men obtained of the mass. Specimen submitted in formalin to Pathology. Following the procedure, hem ostasis achieved and the patient is discharged in stable condition without complication. IMPRESSION:STATUS POST ULTRASOUND GUIDED CORE BIOPSY OF RIGHT AXILLARY NODE, PATHOLOGY IS PENDING. T HIS PROCEDURE IS PERFORMED BY THE UNDERSIGNED.
== END 2018-11-15 14:10 | disposition home or self-care (01) ==
LOC: RADPROMAIN 12:01
PROVIDERS: ATTEND Surgery
DX: C50.911 Malignant neoplasm of unspecified site of right female breast (principal); R59.0 Localized enlarged lymph nodes; Z17.1 Estrogen receptor negative status [ER-]
CPT/HCPCS: 38505; 76942; 88305; 88341; 88342

== ENCOUNTER → 2018-11-20 | Outpatient (CLI) | payer MEDICARE ==
[2018-11-20 16:29] VITALS: BP 150/79; PULSE 61; RESP 18; TEMP 98.3; BMI 29.2
--- NOTE | 2018-11-20 16:35 | P.PN ---
Subjective Progress Note Date: 11/20/18 Natali is 73 year old white female status post right breast lumpectomy and axillary node dissection in September 2016. She had received preoperative chemotherapy and radiation therapy. She had an adverse reaction to Herceptin and was unable to finish this. This was a stage II B T2 N1aM0 ER/MI negative H ER-2 positive tumor. The patient had a bilateral mammogram on 820 119. This revealed a 5 mm equal density mass 6 cm from the nipple and an ultrasound was recommended. On ultrasound the patient was noted to have no cystic or solid lesion of concern and the plan mammogram of the right breast in 6 months was recommended. No lesions of concern were identified in the left breast on her mammogram. The patient has no new masses or nodules in her breast. She did have a Biozorb placed at the time of her initial lumpectomy and this remains present and is uncomfortable to palpation. She otherwise has no history of any trauma or infection in the breast recently. No nipple discharge or skin changes of concern. The patient presented on with a complaint of swelling in her right arm. At that time she was sent to a lymphedema specialist. Additionally an ultrasound of the axilla was performed. Ultrasound revealed a lymph node of concern and a possible biopsy was performed on [id number]. Cold cut biopsy revealed invasive moderately differentiated ductal breast cancer. The patient continues to have swelling of her arm and has not yet received a sleeve, although she has been fitted. Objective - Vital Signs Vital signs: Vital Signs Temp 98.3 F 11/20/18 16:25 Pulse 61 11/20/18 16:25 Resp 18 11/20/18 16:25 BP 150/79 11/20/18 16:25 Pulse Ox 99 11/20/18 16:25 Intake & Output 11/19/18 11/20/18 11/20/18 18:59 06:59 18:59 Weight 77.111 kg - Constitutional General appearance: Present: average body habitus - EENT Eyes: Present: EOMI ENT: Present: hearing grossly normal - Neck Neck: Present: normal ROM - Respiratory Respiratory: bilateral: CTA - Cardiovascular Rhythm: regular Heart sounds: normal: S1, S2 - Integumentary Integumentary Comment(s): Right arm lymphedema - Psychiatric Psychiatric: Present: A&O x's 3, appropriate affect - Additional findings Additional findings: Right arm persistent lymphedema Right axilla: No adenopathy palpated Assessment and Plan Assessment: Impression: Status post right breast lumpectomy/axillary node dissection Status post chemotherapy Status post radiation therapy Lymphedema right upper extremity Peripheral neuropathy Woman status post thyroid resection and thyroid replacement Core biopsy right axillary node positive for infiltrating ductal carcinoma Plan: 1. PET scan 2. Follow-up after PET scan 3. Follow-up with Dr. Boyd 4. We'll cancel symmetry procedure at the present time Cc: Dr. Latosha Cortes
== END ==
LOC: WWCWWP 16:03
PROVIDERS: ATTEND Surgery
DX: Z53.9 Procedure and treatment not carried out, unspecified reason (principal)

== ENCOUNTER → 2018-12-04 | Outpatient (CLI) | payer MEDICARE ==
--- NOTE | 2018-12-10 11:07 | US ---
EXAMINATION TYPE: US venous doppler duplex UE RT DATE OF EXAM: 12/04/2018 COMPARISON: PET/CT December 06, 2018. CLINICAL HISTORY: M79.621,R22.31 PAIN AND SWELLING RT UPPER EXT. Edema right arm. History of right br east lumpectomy and right axilla node dissection 2 years ago. Recent right axilla lymph node biopsy w ith malignant results SIDE PERFORMED: right Right Arm: No evidence of DVT as visualized. Technical limitations due to large amount of soft tissue edema. Hypoechoic areas noted right neck with largest = 1.6cm, possible lymph nodes Grayscale, color doppler, spectral doppler imaging performed of the deep veins of the right upper ext remity. There is normal flow, compressibility and vascular waveforms. IMPRESSION: No ultrasound evidence for acute DVT. Abnormal adenopathy right neck region correlates wi th PET/CT performed one day later. Exam presented to me for official dictation December 10.
== END | disposition home or self-care (01) ==
LOC: RADUSWWP 10:01
PROVIDERS: ATTEND Internal Medicine Hematology & Oncology
DX: M79.621 Pain in right upper arm (principal); R22.31 Localized swelling, mass and lump, right upper limb

== ENCOUNTER → 2018-12-06 | Outpatient (CLI) | payer MEDICARE ==
--- NOTE | 2018-12-10 15:54 | PE ---
Nuclear medicine PET/CT HISTORY: Breast carcinoma, subsequent Patient received 11.3 mCi F-18 FDG intravenously in delayed scanning was performed from the skull bas e to the mid thighs. Localization and attenuation correction CT scan was performed. Correlation to ultrasound 11/08/2018 Neck and chest: There is hypermetabolic uptake identified within the supraclavicular location on the right associated with abnormal lymph nodes at this level as she be 9.1 and 6.6. Adjacent to the right chest wall and the right axillary location there are foci showing hypermetabolic uptake associated w ith small nodes, SUV 3.40-3.6. There is no mediastinal or hilar adenopathy, no suspicious hypermetabo lic uptake. There is no evident lung mass. Apical scarring suspected at the right upper hemithorax is noted. Small nodular densities are present in the right upper lobe which are subcentimeter in size a nd shows smooth margins, at least 2 nodules are present without associated hypermetabolic uptake. Rig ht breast mass shows associated metallic densities with abnormal skin thickening the inferior lateral right breast, no definite associated hypermetabolic uptake. There is no pleural or pericardial effus ion. ABDOMEN: No definite liver mass, no suspicious hypermetabolic uptake. No evident ascites. No retroper itoneal adenopathy. No pelvic adenopathy. Osseous structures: There are degenerative disc changes and facet arthropathy at the lower lumbar sp ine. There is a focus at the L5 level of sclerosis within the spinous process, there is some associat ed mild uptake, SUV 2.1. IMPRESSION: Metastatic disease.
== END | disposition home or self-care (01) ==
LOC: RADPETMAIN 13:12
PROVIDERS: ATTEND Surgery
DX: C50.411 Malignant neoplasm of upper-outer quadrant of right female breast (principal); C79.9 Secondary malignant neoplasm of unspecified site; M51.36 Other intervertebral disc degeneration, lumbar region
CPT/HCPCS: 78815; A9552

== ENCOUNTER → 2019-01-13 | Outpatient (CLI) | payer MEDICARE | END | disposition home or self-care (01) | LOC: LABWHC1 12:30 | PROVIDERS: ATTEND Internal Medicine Endocrinology, Diabetes & Metabolism | DX: E03.8 Other specified hypothyroidism (principal) | CPT/HCPCS: 36415; 84443 ==

== ENCOUNTER → 2019-03-19 | Outpatient (CLI) | payer MEDICARE | END | disposition home or self-care (01) | LOC: LABWHC1 11:15 | PROVIDERS: ATTEND Internal Medicine Endocrinology, Diabetes & Metabolism | DX: E03.8 Other specified hypothyroidism (principal) | CPT/HCPCS: 36415; 84443 ==

== ENCOUNTER → 2019-05-01 | Outpatient (CLI) | payer MEDICARE | END | disposition home or self-care (01) | LOC: LABWHC1 11:22 | PROVIDERS: ATTEND Internal Medicine Endocrinology, Diabetes & Metabolism | DX: E03.8 Other specified hypothyroidism (principal) | CPT/HCPCS: 36415; 84443 ==

== ENCOUNTER → 2019-06-12 | Outpatient (CLI) | payer MEDICARE | END | disposition home or self-care (01) | LOC: LABWHC1 10:16 | PROVIDERS: ATTEND Internal Medicine Endocrinology, Diabetes & Metabolism | DX: E03.8 Other specified hypothyroidism (principal) | CPT/HCPCS: 36415; 84443 ==

== ENCOUNTER → 2019-06-27 | Outpatient (CLI) | payer MEDICARE ==
--- NOTE | 2019-07-01 09:33 | PE ---
Nuclear medicine PET/CT HISTORY: Breast carcinoma, subsequent Patient received 13.8 mCi F-18 FDG intravenously in delayed scanning was performed and skull base to the mid thighs. Localization and attenuation correction CT scan was performed. Correlation to prior exam PET/CT 12/06/2018 Neck and chest: Supraclavicular uptake on the right is again noted as on prior exam as is the subpect oral uptake and uptake along the lateral thoracic region on the right. There is subcarinal uptake not seen on prior exam, mild right hilar and retrocaval pretracheal uptake is present, retrocaval pretra cheal node is subcentimeter in size measuring 8 mm. Groundglass nodularity at the right lung apex is stable, there are indeterminate nodules in the right lung upper lobe as on prior. No pleural or peric ardial effusion. Postop changes are noted to the right breast. ABDOMEN: No suspicious hypermetabolic uptake. No evident liver mass or retroperitoneal adenopathy. No ascites. Osseous structures are stable. Lucent focus is present in the right femoral head with sclerotic heena n as on prior. Facet arthropathy, degenerative disc changes are present in the lumbar spine. IMPRESSION: Some minimal interval uptake in the mediastinum. Distribution of abnormal uptake is other vaz similar to prior exam
== END | disposition home or self-care (01) ==
LOC: RADPETMAIN 09:33
PROVIDERS: ATTEND Internal Medicine Hematology & Oncology
DX: R93.89 Abnormal findings on diagnostic imaging of other specified body structures (principal); C50.411 Malignant neoplasm of upper-outer quadrant of right female breast; C80.1 Malignant (primary) neoplasm, unspecified
CPT/HCPCS: 78815; A9552

== ENCOUNTER → 2019-08-07 | Outpatient (CLI) | payer MEDICARE | END | disposition home or self-care (01) | LOC: LABWHC1 11:17 | PROVIDERS: ATTEND Internal Medicine Endocrinology, Diabetes & Metabolism | DX: E03.8 Other specified hypothyroidism (principal) | CPT/HCPCS: 36415; 84443 ==

== ENCOUNTER → 2019-11-06 | Outpatient (CLI) | payer MEDICARE | END | disposition home or self-care (01) | LOC: LABWHC1 10:05 | PROVIDERS: ATTEND Internal Medicine Endocrinology, Diabetes & Metabolism | DX: E03.8 Other specified hypothyroidism (principal) | CPT/HCPCS: 36415; 84443 ==

== ENCOUNTER → 2020-01-09 | Outpatient (CLI) | payer MEDICARE ==
--- NOTE | 2020-01-11 11:31 | PE ---
Nuclear medicine PET/CT HISTORY: Breast carcinoma, subsequent Patient received 10 mCi F-18 FDG intravenously in delayed scanning was performed from skull base to t he mid thighs. Localization and attenuation correction CT scan was performed. Correlation to prior nuclear medicine PET/CT 06/27/2019 FINDINGS: Chest and neck: Right supraclavicular uptake is no longer seen, right subpectoral uptake jose s diminished as compared to previous exam. There is new left axillary adenopathy, associated hypermet abolic uptake. Retrocaval pretracheal uptake, right hilar uptake, subcarinal uptake is is noted and i s somewhat more conspicuous than on prior exam. No evident lung mass, no pleural or pericardial effus ion. Postop changes again noted to the right breast. Nodularity in the right upper lobe is less consp icuous. ABDOMEN: There is no retroperitoneal adenopathy. No evident liver mass or uptake. No ascites. No susp icious uptake. Osseous structures are stable. IMPRESSION: Mixed response. Left axillary adenopathy and hypermetabolic uptake is new.
== END | disposition home or self-care (01) ==
LOC: RADPETMAIN 12:26
PROVIDERS: ATTEND Internal Medicine Hematology & Oncology
DX: C50.411 Malignant neoplasm of upper-outer quadrant of right female breast (principal); R59.0 Localized enlarged lymph nodes
CPT/HCPCS: 78815; A9552

== ENCOUNTER 2020-02-23 09:31 | Day surgery (SDC) | payer MEDICARE ==
[2020-02-23 10:31] VITALS: RESP 16; TEMP 97.5
[2020-02-23 11:52] VITALS: BP 139/65; PULSE 63
--- NOTE | 2020-02-23 13:18 | US ---
EXAMINATION TYPE: US biopsy lymph node DATE OF EXAM: 02/23/2020 HISTORY: Left axillary adenopathy, history of breast carcinoma. FINDINGS: Maximal barrier technique was utilized. Hand hygiene achieved with soap and water and alco hol-based hand rub. The skin overlying a suitable path to the patient's left axillary adenopathy was localized with ultrasound and the overlying skin prepped and draped. Ultrasound was utilized with st erile technique. Lidocaine was used for local anesthesia. A skin zahra was made with a scalpel. An 18-gauge needle was advanced under direct ultrasound guidance and core specimen obtained of the mass. Specimen submitted in formalin to Pathology. Following the procedure, hemostasis achieved and the patient is discharged in stable condition without complication. IMPRESSION:STATUS POST ULTRASOUND GUIDED CORE BIOPSY LEFT AXILLARY ADENOPATHY, PATHOLOGY IS PENDING. THIS PROCEDURE IS PERFORMED BY THE UNDERSIGNED.
== END 2020-02-23 11:49 | disposition home or self-care (01) ==
LOC: RADPROMAIN 09:31
PROVIDERS: ATTEND Internal Medicine Hematology & Oncology
DX: C77.3 Secondary and unspecified malignant neoplasm of axilla and upper limb lymph nodes (principal); Z88.2 Allergy status to sulfonamides; Z85.3 Personal history of malignant neoplasm of breast
CPT/HCPCS: 38505; 76942; 88305; 88341; 88342

== ENCOUNTER → 2020-04-02 | Outpatient (CLI) | payer MEDICARE ==
--- NOTE | 2020-04-02 14:53 | US ---
EXAMINATION TYPE: US venous doppler duplex LE LT DATE OF EXAM: 04/02/2020 2:29 PM COMPARISON: NONE CLINICAL HISTORY: R22.42 SWELLING LT LOWER LIMB. SIDE PERFORMED: Left TECHNIQUE: The lower extremity deep venous system is examined utilizing real time linear array sonog brenda with graded compression, doppler sonography and color-flow sonography. VESSELS IMAGED: Common Femoral Vein Deep Femoral Vein Greater Saphenous Vein * Femoral Vein Popliteal Vein Small Saphenous Vein * Proximal Calf Veins (* superficial vessels Left Leg: Positive for DVT IMPRESSION: 1. Left lower extremity ultrasound positive for deep venous thrombosis.
== END | disposition home or self-care (01) ==
LOC: RADUSWWP 13:55
PROVIDERS: ATTEND Internal Medicine Hematology & Oncology
DX: I82.402 Acute embolism and thrombosis of unspecified deep veins of left lower extremity (principal); Z88.0 Allergy status to penicillin; Z88.1 Allergy status to other antibiotic agents; Z88.8 Allergy status to other drugs, medicaments and biological substances

== ENCOUNTER → 2020-07-02 | Outpatient (CLI) | payer MEDICARE ==
--- NOTE | 2020-07-05 11:33 | PE ---
Nuclear medicine PET/CT HISTORY: C 50.411, breast carcinoma, subsequent Patient received 11.4 mCi F-18 FDG intravenously in delayed scanning was performed from the skull bas e to the mid thighs. Localization and attenuation correction CT scan was performed. Correlation to prior exam dated 01/09/2020 Chest and neck: Left axillary adenopathy is again noted, multiple nodes are present and at least one node has enlarged as compared to prior exam, SUV values are 3-4.4. Some mild uptake over the right pe ctoralis musculature, SUV only approximately 2.4. No evident lung mass. No pleural or pericardial eff usion. Some streak atelectasis is suspected at the left lung base, there may be some scarring present , there is biapical pleural thickening. ABDOMEN: There is no evident liver mass. No retroperitoneal adenopathy. No ascites. No suspicious upt sonali. Osseous structures show degenerative disc change, facet arthropathy in the lower lumbar spine. No estefany picious uptake within the skeleton. IMPRESSION: There is adenopathy with uptake present in the left axilla. Additional findings above.
== END | disposition home or self-care (01) ==
LOC: RADPETMAIN 10:13
PROVIDERS: ATTEND Internal Medicine Hematology & Oncology
DX: C50.411 Malignant neoplasm of upper-outer quadrant of right female breast (principal); R59.0 Localized enlarged lymph nodes
CPT/HCPCS: 78815; A9552

== ENCOUNTER → 2020-11-05 | Outpatient (CLI) | payer MEDICARE ==
--- NOTE | 2020-11-08 08:03 | PE ---
EXAMINATION TYPE: PET CT fusion skull to thigh DATE OF EXAM: 11/05/2020 COMPARISON: Prior PET/CT July 02, 2020 and older studies HISTORY: Breast cancer progress study. Right sided breast cancer originally diagnosed 2017 recurren t metastatic disease to bone 2018 with subsequent left axillary involvement developed 2020. TECHNIQUE: Following the intravenous administration of 13.50 mCi of F-18 FDG, whole body images are performed from the skull base to the midthigh. Images are reviewed on the computer in the coronal, a xial, and sagittal planes. Reconstructed rotating images are created on independent workstation and reviewed on the computer. A localization and attenuation correction CT is performed in conjunction with the PET scan. Blood glucose level equals 88. SCAN: Subsequent Scan FINDINGS: SKULL BASE AND NECK: No new areas of abnormal hypermetabolic uptake. CHEST, MEDIASTINUM, AND HILAR REGION: Slightly prominent left axillary lymph nodes near axial image 6 0 are redemonstrated. Interval improvement or positive treatment response as max SUV less than 2.5 on current study. Lower enlarged lymph nodes have decreased in size. Mottled lymph nodes right axillary region below pectoralis muscle show mild hypermetabolic uptake, ma x SUV is still less than 2.5 near axial image 49. No additional areas of new abnormal hypermetabolic uptake . ABDOMEN AND PELVIS: Normal excretion is redemonstrated. No new areas of abnormal hypermetabolic uptak e. OSSEOUS STRUCTURES: No new areas for abnormal hypermetabolic uptake OTHER CT: Cardiomegaly is redemonstrated. Tiny pericardial effusion redemonstrated. Surgical changes to right breast lateral inferior aspect with adjacent skin thickening again seen. Patient has little intra-abdominal fat. Moderate axial joint space loss both hips. IMPRESSION: Overall positive treatment response without new or residual areas of abnormal hypermetabo lic uptake with Max SUV greater than 2.5.
== END | disposition home or self-care (01) ==
LOC: RADPETMAIN 10:57
PROVIDERS: ATTEND Internal Medicine Hematology & Oncology
DX: C79.51 Secondary malignant neoplasm of bone (principal); C77.3 Secondary and unspecified malignant neoplasm of axilla and upper limb lymph nodes; Z85.3 Personal history of malignant neoplasm of breast
CPT/HCPCS: 78815; A9552

== ENCOUNTER → 2021-05-27 | Outpatient (CLI) | payer MEDICARE ==
--- NOTE | 2021-05-31 10:21 | PE ---
Nuclear medicine PET/CT HISTORY: Right Breast carcinoma initially diagnosed 2016, subsequent Patient received 7.1 mCi F-18 FDG intravenously and delayed scanning was performed from the skull bas e to the mid thighs. Localization and attenuation correction CT scan was performed. Estimated of the average mediastinal uptake SUV is 1.7, average liver uptake SUV is 2.4 Correlation to prior nuclear medicine PET/CT dated 11/05/2020 Chest and neck: There is no cervical or supraclavicular adenopathy. Some mild uptake is present along the pectoral musculature on the right, SUV 2.8. Apical pleural thickening is present on the right wi thout uptake. There are strand-like areas of increased attenuation in the subpleural location right u pper lobe possibly related to posttreatment change, similar to prior exam, no suspicious uptake. Ther e is no pleural or pericardial effusion. Bandlike area of increased attenuation at the left lung base may reflect scarring. There is no mediastinal, axillary, or hilar adenopathy, benign-appearing nodes in the left axilla showed no suspicious uptake. Right hilar node shows an SUV of only 2.1. Postop ch anges are noted to the right breast. ABDOMEN: There is no evident liver mass. No ascites. No retroperitoneal adenopathy or adrenal mass. N o suspicious uptake. No pelvic adenopathy. Osseous structures show some mild uptake at the proximal right shoulder which may be postinflammatory , SUV only 1.8. IMPRESSION: Mild uptake along the pectoral muscle region on the right as described.
== END | disposition home or self-care (01) ==
LOC: RADPETMAIN 10:13
PROVIDERS: ATTEND Internal Medicine Hematology & Oncology
DX: C50.411 Malignant neoplasm of upper-outer quadrant of right female breast (principal); R91.8 Other nonspecific abnormal finding of lung field
CPT/HCPCS: 78815; A9552

== ENCOUNTER → 2021-12-02 | Outpatient (CLI) | payer MEDICARE ==
--- NOTE | 2021-12-05 12:38 | PE ---
EXAMINATION TYPE: PET CT fusion skull to thigh DATE OF EXAM: 12/02/2021 CLINICAL INDICATION:Female, 76 years old with history of C50.411 breast ca; TECHNIQUE: Following the intravenous administration of 11.6 mCi of F-18 FDG, whole body images are performed from the skull base to the midthigh. Images are reviewed on the computer in the coronal, a xial, and sagittal planes. Reconstructed rotating images are created on independent workstation and reviewed on the computer. A non-contrast CT is performed in conjunction with the PET scan. Glucose level 78 mg/dL COMPARISON: CT None, PET/CT 05/25/2021 most recent and dating back to 06/24/2020. FINDINGS: Mediastinal SUV mean is 1.43. Hepatic parenchyma SUV mean is 2.3. SKULL BASE AND NECK: No suspicious FDG activity. CHEST, MEDIASTINUM, AND HILAR REGION: No suspicious FDG activity. Mild physiologic uptake within the right pectoralis major muscle max SUV 3.3. Multiple areas of FDG activity are seen in the air anterio r to the patient including along the skin of the left breast which is felt to be outside the patient. Multiple axillary lymph nodes within the left breast which have decreased in size and FDG activity wh en comparing to immediate prior. The largest lymph node now measuring 1 cm in short axis with max SUV 1.0 previously 1.8 cm in max SUV 4.4 when comparing to 06/24/2020. Comparing to most recent prior on 05/27/2021 there appears similar in size. ABDOMEN AND PELVIS: No suspicious FDG activity. OSSEOUS STRUCTURES: No suspicious FDG activity. OTHER CT: Bilateral aphakia atherosclerosis of the arterial vasculature. Right breast surgical clip p resent Mild streaky atelectasis/scarring in the lungs. The heart is mildly enlarged for size. Few sca ttered clonic diverticula. Multilevel disc degeneration changes throughout the spine. IMPRESSION: No abnormal FDG uptake. There remains mild nonspecific right pectoralis major FDG activity.
== END | disposition home or self-care (01) ==
LOC: RADXRMAIN 09:11
PROVIDERS: ATTEND Internal Medicine Hematology & Oncology
DX: C50.411 Malignant neoplasm of upper-outer quadrant of right female breast (principal)
CPT/HCPCS: 78815; A9552

== ENCOUNTER → 2022-05-19 | Outpatient (CLI) | payer MEDICARE ==
--- NOTE | 2022-05-20 22:42 | PE ---
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 Images are reviewed on the computer in the coronal, ax ial, and sagittal planes. Reconstructed rotating images are created on independent workstation and r eviewed on the computer. A localization and attenuation correction CT is performed in conjunction w ith the PET scan. Blood glucose level was 77 SCAN: Subsequent Scan FINDINGS: SKULL BASE AND NECK: No new areas of abnormal hypermetabolic uptake. CHEST, MEDIASTINUM, AND HILAR REGION: Prominent left axillary lymph nodes are redemonstrated. No new abnormal hypermetabolic uptake. Mild hypermetabolic uptake below pectoralis muscle shows diminished uptake on current study, max SUV less than 2.5. No areas of new abnormal hypermetabolic uptake . ABDOMEN AND PELVIS: Normal excretion is redemonstrated. No new areas of abnormal hypermetabolic uptak e. OSSEOUS STRUCTURES: No new areas for abnormal hypermetabolic uptake OTHER CT: Cardiomegaly is redemonstrated. Small pericardial effusion right aspect redemonstrated. Yvette gical changes to right breast lateral inferior aspect with adjacent skin thickening again seen. Patient has little intra-abdominal fat. Moderate axial joint space loss both hips is again seen. IMPRESSION: No new areas of abnormal hypermetabolic uptake to suggest active neoplastic recurrence.
== END | disposition home or self-care (01) ==
LOC: RADPETMAIN 15:21
PROVIDERS: ATTEND Internal Medicine Hematology & Oncology
DX: C50.411 Malignant neoplasm of upper-outer quadrant of right female breast (principal)
CPT/HCPCS: 78815; A9552

== ENCOUNTER → 2022-12-01 | Outpatient (CLI) | payer MEDICARE ==
--- NOTE | 2022-12-01 13:34 | PE ---
EXAMINATION TYPE: PET CT fusion skull to thigh DATE OF EXAM: 12/01/2022 COMPARISON: Most recent prior PET/CT May 19, 2022 and older studies. HISTORY: Breast cancer progress study. Right-sided Breast cancer to lymph nodes initially diagnosed 2016 with history of chemotherapy, immunotherapy, and radiation treatment. Metastatic disease to b one 2018 and left axillary lymph node involvement 2020. TECHNIQUE: Following the intravenous administration of 10.3 mCi of F-18 FDG, whole body images are p erformed from the skull base to the midthigh. Images are reviewed on the computer in the coronal, ax ial, and sagittal planes. Reconstructed rotating images are created on independent workstation and r eviewed on the computer. A localization and attenuation correction CT is performed in conjunction w ith the PET scan. Blood glucose level equals 80. SCAN: Subsequent Scan FINDINGS: SKULL BASE AND NECK: No new areas of abnormal hypermetabolic uptake. CHEST, MEDIASTINUM, AND HILAR REGION: Prominent left axillary lymph nodes are redemonstrated narrow a xial image 79. No new abnormal hypermetabolic uptake at this level. Focal scarring suspected anterior medial left chest wall axial image 71. No new areas of new abnormal hypermetabolic uptake . ABDOMEN AND PELVIS: Normal excretion is redemonstrated. No new areas of abnormal hypermetabolic uptak e. OSSEOUS STRUCTURES: No new areas for abnormal hypermetabolic uptake OTHER CT: Cardiomegaly is redemonstrated. Surgical changes to right breast lateral inferior aspect wi th adjacent skin thickening again seen. Patient has little intra-abdominal fat. Moderate axial joint space loss both hips is again seen. Mult ilevel vacuum disc phenomenon in the lumbar spine redemonstrated. IMPRESSION: No new areas of abnormal hypermetabolic uptake to suggest active neoplastic recurrence.
== END | disposition home or self-care (01) ==
LOC: RADPETMAIN 10:56
PROVIDERS: ATTEND Internal Medicine Hematology & Oncology
DX: C50.411 Malignant neoplasm of upper-outer quadrant of right female breast (principal)
CPT/HCPCS: 78815; A9552

== ENCOUNTER → 2023-03-05 | Outpatient (CLI) | payer MEDICARE ==
--- NOTE | 2023-03-06 20:50 | MM ---
Reason for Exam: Screening (asymptomatic). Last mammogram was performed 4 year(s) and 5 month(s) ago. Patient History: Menarche at age 13. First Full-Term at age 28. Postmenopausal. Breast cancer, age 71. 05/2018, Benign Excisional Biopsy on the right side. 09/05/2016, Malignant Core Biopsy on the right side. 03/14/2016, Malignant Core Biopsy on the right side. 08/2016, Chemotherapy. 11/2016, Radiation Therapy. Prior Study Comparison: 09/10/2017 Bilateral Diagnostic Mammogram, [facility]. 03/27/2018 Right Diagnostic Mammogram, [facility]. 09/25/2018 Bilateral Diagnostic Mammogram, [facility]. Tissue Density: The breast tissue is heterogeneously dense. This may lower the sensitivity of mammography. Findings: Analyzed By CAD. Postsurgical and posttreatment changes right breast. Chronic nodularity on the left. There is no suspicious group of microcalcifications or new suspicious mass in either breast. Overall Assessment: Benign, BI-RAD 2 Management: Screening Mammogram of both breasts in 1 year. . Patient should continue monthly self-breast exams. A clinical breast exam by your physician is recommended on an annual basis. This exam should not preclude additional follow-up of suspicious palpable abnormalities. Electronically signed and approved by: Dionne Banuelos M.D. Radiologist
== END | disposition home or self-care (01) ==
LOC: RADMAMWWP 16:05
PROVIDERS: ATTEND Internal Medicine Hematology & Oncology
DX: Z12.31 Encounter for screening mammogram for malignant neoplasm of breast (principal); C50.411 Malignant neoplasm of upper-outer quadrant of right female breast; B02.9 Zoster without complications; L03.116 Cellulitis of left lower limb; Z71.3 Dietary counseling and surveillance; Z17.1 Estrogen receptor negative status [ER-]
CPT/HCPCS: 77063; 77067

== ENCOUNTER → 2023-06-01 | Outpatient (CLI) | payer MEDICARE ==
--- NOTE | 2023-06-02 08:49 | PE ---
EXAMINATION TYPE: PET CT fusion skull to thigh DATE OF EXAM: 06/01/2023 CLINICAL INDICATION:Female, 78 years old with history of C50.411 BREAST CANCER; TECHNIQUE: Following the intravenous administration of 10.8 mCi of F-18 FDG, whole body images are performed from the skull base to the midthigh. Images are reviewed on the computer in the coronal, a xial, and sagittal planes. Reconstructed rotating images are created on independent workstation and reviewed on the computer. A non-contrast CT is performed in conjunction with the PET scan. Glucose level 74 mg/dL CT DLP: 451 mGycm, Automated exposure control for dose reduction was used. COMPARISON: CT None, PET/CT 12/01/2022, FINDINGS: Mediastinal SUV mean is 2.0. Hepatic parenchyma SUV mean is 2.5. SKULL BASE AND NECK: No suspicious radiotracer activity. CHEST, MEDIASTINUM, AND HILAR REGION: Right perihilar focus of uptake max SUV 4.7 [address] visualized. No CT correlate definitively v isualized due to lack of IV contrast. ABDOMEN AND PELVIS: No suspicious radiotracer activity. MUSCULOSKELETAL STRUCTURES: No suspicious radiotracer activity. OTHER CT: Cardiomegaly. Surgical changes to right breast lateral inferior aspect with adjacent skin t hickening again seen. Patient has little intra-abdominal fat. Moderate axial joint space loss both hi ps is again seen. Multilevel vacuum disc phenomenon in the lumbar spine redemonstrated. IMPRESSION: Single right perihilar lymph node with mildly elevated uptake. Findings could be reactive. Otherwise, no suspicious radiotracer activity. Attention follow-up imaging.
== END | disposition home or self-care (01) ==
LOC: RADPETMAIN 10:00
PROVIDERS: ATTEND Internal Medicine Hematology & Oncology
DX: C50.411 Malignant neoplasm of upper-outer quadrant of right female breast (principal)
CPT/HCPCS: 78815; A9552

== ENCOUNTER → 2023-11-08 | Outpatient (CLI) | payer MEDICARE ==
--- NOTE | 2023-11-11 22:03 | PE ---
EXAMINATION TYPE: PET CT fusion skull to thigh DATE OF EXAM: 11/08/2023 COMPARISON: No recent pertinent CT Prior PET/CT: 4 08/01/2023 HISTORY: Breast cancer TECHNIQUE: Following the intravenous administration of 7.85 mCi of F-18 FDG, whole body images are p erformed from the skull base to the midthigh. Images are reviewed on the computer in the coronal, ax ial, and sagittal planes. Reconstructed rotating images are created on independent workstation and r eviewed on the computer. A localization and attenuation correction CT is performed in conjunction w ith the PET scan. DLP: 398.89 mGycm SCAN: Subsequent Blood glucose: 77 mg/dL Average Mediastinum SUV: 2.07 Average Liver SUV: 2.44 FINDINGS: NECK: There is some increased uptake within the posterior slightly right aspect of the hypopharynx. Example image 47, SUV 7.32. Direct visualization is recommended. This is less intense than on compari son. THORAX: There is some mild increased uptake within the right suprahilar region, image 81, SUV 4.57. P reviously SUV 4.73 In the lower thoracic canal there may be some mild increased uptake spinal cord region, image 123, se jam 3.08. Consider MRI thoracic spine with contrast if there are neurologic symptoms. ABDOMEN: No abnormal uptake PELVIS: No abnormal uptake OSSEOUS STRUCTURES: No abnormal uptake LOCALIZATION CT: No suspicious changes COMPARISON: Similar visualization to previous exam without increasing radiotracer. IMPRESSION: 1. Mild uptake within the right hilar region is persistent with slight diminished radiotracer. 2. Uptake within the right posterior hypopharynx is diminished from comparison. 3. Uptake within the lower thoracic spinal canal may have been present previously but is not increasi ng over the interval. MRI with contrast can be performed if there are neurologic symptoms. [facility], Workstation: [facility], 11/11/2023 10:01 PM
== END | disposition home or self-care (01) ==
LOC: RADPETMAIN 11:14
PROVIDERS: ATTEND Internal Medicine Hematology & Oncology
DX: C50.411 Malignant neoplasm of upper-outer quadrant of right female breast (principal)
CPT/HCPCS: 78815; A9552

== ENCOUNTER → 2024-05-29 | Outpatient (CLI) | payer MEDICARE ==
--- NOTE | 2024-05-31 16:00 | PE ---
EXAMINATION TYPE: PET CT fusion skull to thigh DATE OF EXAM: 05/29/2024 COMPARISON: No recent pertinent CT Prior PET/CT: 11/08/2023 CLINICAL INDICATION: Female, 79 years old with history of Breast ca, TECHNIQUE: Following the intravenous administration of 11.34 mCi of F-18 FDG, whole body images are performed from the skull base to the midthigh. Images are reviewed on the computer in the coronal, a xial, and sagittal planes. Reconstructed rotating images are created on independent workstation and reviewed on the computer. A localization and attenuation correction CT is performed in conjunction with the PET scan. DLP: 458.02 mGycm SCAN: Subsequent Blood glucose: 84 mg/dL Average Mediastinum SUV: 1.83 Average Liver SUV: 2.29 FINDINGS: NECK: There is uptake within the hypopharynx measuring this to be 13.79, example image 43. This is i ncreasing from comparison. Direct visualization is recommended THORAX: No abnormal uptake. Previous right hilar uptake has diminished 2.57. The uptake within the lower spinal cord region has diminished in SUV over the interval. ABDOMEN: No abnormal uptake PELVIS: No abnormal uptake OSSEOUS STRUCTURES: No abnormal uptake LOCALIZATION CT: No suspicious changes. COMPARISON: Increasing uptake within the hypopharynx. Right hilar and lower spinal canal uptake is diminished from comparison. No new areas of uptake. IMPRESSION: 1. No new suspicious areas of uptake. 2. There is improvement of the thoracic uptake. 3. Uptake within the hypopharynx appears to be significantly higher. Direct visualization of the hypo pharynx is recommended. [facility], , 05/31/2024 3:58 PM
== END | disposition home or self-care (01) ==
LOC: RADPETMAIN 12:11
PROVIDERS: ATTEND Internal Medicine Hematology & Oncology
DX: C50.411 Malignant neoplasm of upper-outer quadrant of right female breast (principal)
CPT/HCPCS: 78815; A9552